=== PATIENT | female | born 1955 | race Caucasian/White ===

== ENCOUNTER → 2017-05-08 12:56 | Outpatient (CLI) | payer OTHER, SELFPAY ==
[2017-05-08 13:29] LABS: Hemoglobin A1c 6.1 % (4.2-6.3)
== END ==
PROVIDERS: Family Provider Internal Medicine; PCP Internal Medicine; Visit Provider Internal Medicine
DX: R73.02 Impaired glucose tolerance (oral) (principal)
CPT/HCPCS: 36415; 83036

== ENCOUNTER 2017-06-29 08:04 | Day surgery (SDC) | payer OTHER, SELFPAY ==
[2017-06-29 08:30] VITALS: BP 152/84; PULSE 74; RESP 16; TEMP 36.2; O2SAT 98; BMI 41.5
--- NOTE | 2017-06-29 09:28 | PCM.HP.STD ---
Problem List (1) Screening for intestinal cancer Status: Acute History of Present Illness Date of Admission: 06/29/17 The patient is a 62 year old F who presents for screening colonoscopy. Her previous examination was 10 years prior. She denies bright red blood per rectum or melena. No abdominal pain. No change of bowel habits. No unexpected weight loss. No history of DVT. She is otherwise enjoying good health. There is no family history of colon cancer or colon polyps. Past Medical History Allergies methylprednisolone sodium succinate [From Solu-Medrol] Adverse Reaction (Verified 06/26/17 15:18) Other tachycardic with shortness of breath Home Medications: Ambulatory Orders Medication Instructions Recorded Calcium Carb/Vitamin D 1 tab PO DAILY@0800 07/01/13 [Caltrate-600 With Vit D Tab] Losartan/Hydrochlorothiazide 1 tab PO DAILY 07/01/13 [Hyzaar 100-25 Tablet] Rosuvastatin Calcium [Crestor] 5 mg PO QHS 07/01/13 buPROPion XL [Wellbutrin Xl] 150 mg PO DAILY 07/01/13 Cetirizine HCl [Zyrtec] 10 mg PO DAILY 11/27/14 Esomeprazole Mag Trihydrate 40 mg PO DAILY 11/27/14 [Nexium] aspirin 81 mg tablet,delayed 81 mg PO QDAY 03/04/17 release multivitamin,ri-vvlp-ramuiglt 1 tab PO QDAY 03/04/17 tablet Smoking Status: Never smoker Review of Systems Constitutional: Denies: Weight Change Eyes: Denies: Blurred vision, Vision Change HEENT: Denies: Ear Pain, Eye Pain Cardiovascular: Denies: Chest Pain, Claudication Respiratory: Denies: Cough, Shortness of Breath Gastrointestinal: Denies: Hematemesis, Hematochezia Genitourinary: Denies: Dysuria, Hematuria Musculoskeletal: Denies: Leg Pain Skin: Denies: Jaundice Neurological: Denies: Confusion Psychiatric: Denies: Depression Endocrine: Denies: Change in Body Habitus Hematologic/ Lymphatic: Denies: Easy Bleeding VTE Information - Inpt Only VTE Present on Admission: No Patient Problems: Active and Suspected Problems (Last Updated 03/04/17 @ 12:27 by Meghan Cerrato) Screening for intestinal cancer (Acute) - Physical Exam General: Alert, Oriented x3, Cooperative, No apparent distress HEENT: Atraumatic Oral: Moist Mucosa Neck: Supple Lungs: Clear to auscultation Cardiovascular: Regular rate, Regular Rhythm Abdomen: Bowel Sounds Present, Soft, Non Tender, Non-Distended, No Hepato-splenomegaly Extremities: No clubbing Skin: No rashes Musculoskeletal: No Tenderness to Palpation of Joints or Extremities Neurological: Cranial nerves II-XII grossly intact Psych/Mental Status: Normal Affect Vital Signs Temp Pulse Resp BP Pulse Ox 97.2 F L 74 16 152/84 H 98 06/29/17 08:30 06/29/17 08:30 06/29/17 08:30 06/29/17 08:30 06/29/17 08:30 Oxygen Delivery Method Room Air Weight: 227 lb 4.745 oz Body Mass Index (BMI) 41.5 Assessment/Plan Active and Suspected Problems (Last Updated 03/04/17 @ 12:27 by Meghan Cerrato) Screening for intestinal cancer (Acute) I am recommending the patient a screening colonoscopy. She is aware of the technique, benefits, risks, alternatives. She has had an opportunity to ask and have questions answered.. We will proceed with IV sedation. Stan Vasquez M.D., F.A.C.S.
--- NOTE | 2017-06-29 09:31 | HP.PCM_ITS ---
Problem List (1) Screening for intestinal cancer Status: Acute History of Present Illness Date of Admission: 06/29/17 The patient is a 62 year old F who presents for screening colonoscopy. Her previous examination was 10 years prior. She denies bright red blood per rectum or melena. No abdominal pain. No change of bowel habits. No unexpected weight loss. No history of DVT. She is otherwise enjoying good health. There is no family history of colon cancer or colon polyps. Past Medical History Allergies methylprednisolone sodium succinate [From Solu-Medrol] Adverse Reaction ( Verified 06/26/17 15:18) Other tachycardic with shortness of breath Home Medications: Ambulatory Orders Medication Instructions Recorded Calcium Carb/Vitamin D 1 tab PO DAILY@0800 07/01/13 [Caltrate-600 With Vit D Tab] Losartan/Hydrochlorothiazide 1 tab PO DAILY 07/01/13 [Hyzaar 100-25 Tablet] Rosuvastatin Calcium [Crestor] 5 mg PO QHS 07/01/13 buPROPion XL [Wellbutrin Xl] 150 mg PO DAILY 07/01/13 Cetirizine HCl [Zyrtec] 10 mg PO DAILY 11/27/14 Esomeprazole Mag Trihydrate 40 mg PO DAILY 11/27/14 [Nexium] aspirin 81 mg tablet,delayed 81 mg PO QDAY 03/04/17 release multivitamin,sc-ncve-hiujvdlk 1 tab PO QDAY 03/04/17 tablet Smoking Status: Never smoker Review of Systems Constitutional: Denies: Weight Change Eyes: Denies: Blurred vision, Vision Change HEENT: Denies: Ear Pain, Eye Pain Cardiovascular: Denies: Chest Pain, Claudication Respiratory: Denies: Cough, Shortness of Breath Gastrointestinal: Denies: Hematemesis, Hematochezia Genitourinary: Denies: Dysuria, Hematuria Musculoskeletal: Denies: Leg Pain Skin: Denies: Jaundice Neurological: Denies: Confusion Psychiatric: Denies: Depression Endocrine: Denies: Change in Body Habitus Hematologic/ Lymphatic: Denies: Easy Bleeding VTE Information - Inpt Only VTE Present on Admission: No Patient Problems: Active and Suspected Problems (Last Updated 03/04/17 @ 12:27 by Meghan Cerrato) Screening for intestinal cancer (Acute) - Physical Exam General: Alert, Oriented x3, Cooperative, No apparent distress HEENT: Atraumatic Oral: Moist Mucosa Neck: Supple Lungs: Clear to auscultation Cardiovascular: Regular rate, Regular Rhythm Abdomen: Bowel Sounds Present, Soft, Non Tender, Non-Distended, No Hepato- splenomegaly Extremities: No clubbing Skin: No rashes Musculoskeletal: No Tenderness to Palpation of Joints or Extremities Neurological: Cranial nerves II-XII grossly intact Psych/Mental Status: Normal Affect Vital Signs Temp Pulse Resp BP Pulse Ox 97.2 F L 74 16 152/84 H 98 06/29/17 08:30 06/29/17 08:30 06/29/17 08:30 06/29/17 08:30 06/29/17 08:30 Oxygen Delivery Method Room Air Weight: 227 lb 4.745 oz Body Mass Index (BMI) 41.5 Assessment/Plan Active and Suspected Problems (Last Updated 03/04/17 @ 12:27 by Meghan Cerrato) Screening for intestinal cancer (Acute) I am recommending the patient a screening colonoscopy. She is aware of the technique, benefits, risks, alternatives. She has had an opportunity to ask and have questions answered.. We will proceed with IV sedation. Stan Vasquez M.D., F.A.C.S.
--- NOTE | 2017-06-29 09:55 | PCM.OPRPT ---
Problem List (1) Screening for intestinal cancer Status: Acute Report of Operation Date of Procedure: 06/29/17 Pre-Operative Diagnosis: Screening for intestinal cancer Post-Operative Diagnosis: Normal colonoscopy Surgery/Procedure Performed:: Colonoscopy Description of Surgical Findings:: Timeout and informed consent was obtained. 62-year-old female was taken to the endoscopy suite. She was placed in left lateral decubitus position. Throughout the procedure she received a total of 100 mg Demerol and 3.5 mg of Versed is intravenous sedation. Digital rectal exam performed. Some mild hemorrhoidal findings. No mass lesions. Normal anal tone. Flexible colonoscope inserted the rectum and gradually and tediously advanced through the colon. The splenic flexure was rather tight. Was then able to close to slowly advance the scope through the transverse colon into the ascending colon. It was achieved. Bowel prep was good. The scope was carefully withdrawn from the cecum ascending colon transverse colon descending colon and sigmoid colon. No distinct abnormality noted. The colon was rather tortuous. Scope was withdrawn to the rectum retroflex anorectal verge inspected this too was not remarkable. Excess fluid and air was aspirated free the procedure was completed she tolerated it well. Impression Normal colonoscopy. Previous examination was approximately 10 years prior. Next screening examination recommended in 10 years. Cc: Dr. Riri Aviles Medications were given at 0933. Procedure started 0935. The cecum was reached at 0943.05. The procedure was completed at 0954.50 Stan Vasquez M.D., F.A.C.S. Type of Anesthesia:: IV Sedation
[2017-06-29 09:59] VITALS: BP 154/89; BP 159/97; PULSE 92; RESP 18; TEMP 36.6; O2SAT 93
[2017-06-29 10:00] VITALS: BP 154/89; BP 173/112; PULSE 88; RESP 91; O2SAT 92
[2017-06-29 10:11] VITALS: BP 154/89; BP 163/93; PULSE 86; RESP 18; O2SAT 94
[2017-06-29 10:16] VITALS: BP 154/89; BP 158/100; PULSE 87; RESP 18; TEMP 36.6; O2SAT 96
[2017-06-29 10:26] VITALS: BP 154/89
== END 2017-06-29 10:39 | disposition home or self-care (01) ==
LOC: EN 08:05 → AC 08:06
PROVIDERS: Family Provider Internal Medicine; PCP Internal Medicine; Visit Provider Surgery
PROC: 0DJD8ZZ Inspection of Lower Intestinal Tract, Via Natural or Artificial Opening Endoscopic (ICD-10-PCS; CPT 45378; principal; 2017-06-29 09:10)
DX: Z12.11 Encounter for screening for malignant neoplasm of colon (principal); Z79.82 Long term (current) use of aspirin; Z79.899 Other long term (current) drug therapy
CPT/HCPCS: 45378; 99152; 99153; J7120

== ENCOUNTER → 2017-07-04 11:17 | Outpatient (CLI) | payer OTHER, SELFPAY ==
--- NOTE | 2017-07-04 11:23 | BI_ITS ---
MAMMOGRAPHY - BILATERAL SCREENING REASON FOR EXAM: Female, 62 years old. Routine annual screening examination. PERTINENT HISTORY: Non-contributory. TECHNIQUE: Digital bilateral breast rd (3D mammographic acquisition) in the CC and MLO projections. 2-D mediolateral oblique (MLO) and craniocaudad (CC) views of both breasts were obtained. CAD: Full Field Digital Mammography with Computer Added Detection was performed. COMPARISON: Comparison is made with prior study dated February 16, 2014 and October 17, 2012. FINDINGS: Breast Composition: The breasts are almost entirely fatty. There are no dominant masses or suspicious calcifications. Stable well-defined 4.6 mm nodule in the upper lateral portion of the right breast. This most likely represents a small intramammary lymph node. No other significant abnormalities are identified. There has been no significant change since the prior study. BI/SCREENING MAMM (CAD), BILAT IMPRESSION: Stable bilateral screening mammogram. Yearly follow-up mammogram recommended. (A) ASSESSMENT CATEGORY: BIRADS Category 2: Benign. A letter regarding these results will be sent to the patient by the facility within 30 days. Approximately 10% of breast cancers are not detected by mammography. A normal mammogram should not delay biopsy of a clinically suspicious abnormality. [id number] Electronically Signed: Basim Sharma MD at 13:15 EDT Tel [phone], Service support ,
--- NOTE | 2017-07-04 11:24 | BD_ITS ---
STUDY: DUAL ENERGY X-RAY ABSORPTIOMETRY / DXA REASON FOR EXAM: Female, 62 years old. The patient is postmenopausal. Loss of height. TECHNIQUE: Bone Mineral Density (BMD) measurements of lumbar spine and bilateral hips were obtained. COMPARISON: Comparison is made with prior study dated March 12, 2008. FINDINGS: Lumbar Spine (L1-L4): g/cm2 (1.520) / T-score (2.8) / Z-score (4.0) Findings are suggestive of normal bone density with a low fracture risk. Left Femur Total: g/cm2 (1.173) / T-score (1.3) / Z-score (2.2) Left Femoral Neck: g/cm2 (0.998) / T-score (-0.3) / Z-score (1.0) Right Femur Total: g/cm2 (1.231) / T-score (1.8) / Z-score (2.7) Right Femoral Neck: g/cm2 (1.142) / T-score (0.8) / Z-score (2.0) The T-Scores on the most recent prior examination were: Lumbar Spine (L1-L4): There has been improvement of bone density since the previous examination. Left Femur Total: which represents a worsening of 10.9%. BD/Dexa Bone Density Study IMPRESSION: The patient is considered normal as outlined below according to World Nils Organization (WHO) criteria with a low fracture risk. There has been worsening of bone density since the previous examination. Reference Information: The T-score is the number of standard deviations above or below the standard which is normal for young adults at their peak bone mineral density. The World Health Organization (WHO) interprets the T-scores as follows: Above -1 Normal bone density Between -1 and -2.5 Osteopenia Equal to / or below -2.5 Osteoporosis As a practical clinical guideline, osteopenia may be graded as follows: Mild -1 through -1.5 Moderate -1.6 through -2.0 Severe -2.1 through -2.4 The Z-score is the number of standard deviations above or below age-matched controls. A Z-score of less than -1.5 would be considered abnormal. References: 1. NIH Osteoporosis and Related Bone Diseases http://www.osteo.org 2. International Society for Clinical Densitometry http://www.iscd.org 3. National Osteoporosis Foundation http://www.nof.org Electronically Signed: Basim Sharma MD at 13:05 EDT Tel [phone], Service support ,
== END ==
PROVIDERS: Family Provider Internal Medicine; PCP Internal Medicine; Visit Provider Internal Medicine
DX: Z12.31 Encounter for screening mammogram for malignant neoplasm of breast (principal); Z78.0 Asymptomatic menopausal state
CPT/HCPCS: 77063; 77067; 77080

== ENCOUNTER → 2017-10-02 07:20 | Outpatient (CLI) | payer OTHER, SELFPAY ==
[2017-10-02 07:51] LABS: Absolute Lymphocyte Count 1.72 X10^3/ul (0.83-4.51); Basophil# 0.07 X10^3/uL; Basophil% 0.7 % (0-1); Eosinophil# 0.23 X10^3/uL; Eosinophils% 2.4 % (0-5); Hematocrit 41.6 % (37-47); Hemoglobin 13.3 g/dl (12.0-15.0); Lymphocyte # 1.72 X10^3/ul (4.0); Mean Corpuscular Hgb 27.7 pg (27.0-32.0); Mean Corpuscular Volume 86.7 fL (81-99); Mean Platelet Vol. 8.8 fl (6.2-12.0); Monocyte# 0.55 X10^3/uL; Monocyte% 5.8 % (0-10); Neutrophil # 6.96 X10^3/uL (2.7-7.7); Neutrophil % 72.9 % (47-70); POSITIVE COUNT NO; POSITIVE DIFFERENTIAL NO; POSITIVE MORPHOLOGY NO; Platelet Count 259 K/mm3 (150-450); RBC Distribution Width CV 13.2 % (11.6-14.6); RBC Distribution Width SD 41.9 fl (35.1-43.9); White Blood Count 9.6 K/mm3 (4.4-11.0)
[2017-10-02 08:33] LABS: AST(SGOT) 12 U/L (15-37); Alanine Aminotransfer ALT/SGPT 25 U/L (13-56); Albumin, Serum 3.5 g/dL (3.2-5.0); Alkaline Phosphatase 80 U/L (45-117); Anion Gap 11 (5-15); BUN 13 mg/dL (7-18); BUN/Creat Ratio 18.7 RATIO (10-20); Calcium,Total 9.3 mg/dL (8.5-10.1); Chloride 103 mmol/L (98-107); Cholesterol 152 mg/dL (200); EST Glomerular Filtration Rate 91 mL/min (>60); Est Glom Filt Rate - Afr Amer 111 mL/min (>60); Globulin 3.5 g/dL (2.2-4.2); Glucose 116 mg/dL (74-106); High Density Lipoprotein 43 mg/dL; Potassium 4.3 mmol/L (3.5-5.1); Sodium Level 142 mmol/L (136-145); Thyroid Stim Hormone (TSH) 3.71 uIU/mL (0.358-3.74); Triglycerides 157 mg/dL; Very Low Density Lipoprotein 31 mg/dL (5-40)
[2017-10-02 08:34] LABS: Microalbumin,Random Urine 6.5 mg/L (NO RANGE EST.); Microalbumin:Creatinine Ratio 3.7 mg/g CRE (<30 mg/g CRE)
[2017-10-02 09:39] LABS: Hemoglobin A1c 5.8 % (4.2-6.3)
[2017-10-03 17:19] LABS: Lipoprotein A 164 nmol/L (<75)
== END ==
PROVIDERS: Family Provider Internal Medicine; PCP Internal Medicine; Visit Provider Internal Medicine
DX: R73.02 Impaired glucose tolerance (oral) (principal)
CPT/HCPCS: 36415; 80053; 80061; 82043; 82570; 83036; 83695; 84443; 85025

== ENCOUNTER → 2018-04-18 13:13 | Outpatient (CLI) | payer OTHER, SELFPAY ==
[2018-04-18 14:23] LABS: CRP 8.16 mg/L (0.0-3.0)
[2018-04-18 14:27] LABS: Erythrocyte Sedimentation Rate 9 mm/hr (0-30)
[2018-04-18 14:30] LABS: Absolute Lymphocyte Count 2.23 X10^3/ul (0.83-4.51); Basophil# 0.08 X10^3/uL; Basophil% 0.6 % (0-1); Eosinophil# 0.22 X10^3/uL; Eosinophils% 1.8 % (0-5); Hematocrit 44.3 % (37-47); Hemoglobin 14.5 g/dl (12.0-15.0); Lymphocyte # 2.23 X10^3/ul (4.0); Lymphocyte % 17.9 % (19-41); Mean Corp Hgb Conc 32.7 g/gl (32-36); Mean Corpuscular Hgb 28.3 pg (27.0-32.0); Mean Corpuscular Volume 86.4 fL (81-99); Mean Platelet Vol. 9.4 fl (6.2-12.0); Monocyte# 0.91 X10^3/uL; Monocyte% 7.3 % (0-10); Neutrophil # 8.96 X10^3/uL (2.7-7.7); Neutrophil % 72.1 % (47-70); Platelet Count 366 K/mm3 (150-450); RBC Distribution Width SD 39.9 fl (35.1-43.9); Red Blood Count 5.13 M/mm3 (4.2-5.4); White Blood Count 12.4 K/mm3 (4.4-11.0)
[2018-04-18 14:31] LABS: POSITIVE COUNT NO; POSITIVE DIFFERENTIAL NO; POSITIVE MORPHOLOGY NO
[2018-04-19 08:29] LABS: Cancer Antigen 125 17.4 U/mL (0.0-38.1)
== END ==
PROVIDERS: Family Provider Internal Medicine; PCP Internal Medicine; Referring Provider Internal Medicine; Visit Provider Internal Medicine
DX: R10.32 Left lower quadrant pain (principal); Z85.43 Personal history of malignant neoplasm of ovary
CPT/HCPCS: 36415; 85025; 85652; 86140; 86304

== ENCOUNTER → 2018-04-22 08:10 | Outpatient (CLI) | payer OTHER, SELFPAY ==
--- NOTE | 2018-04-22 08:12 | CT_ITS ---
STUDY: CT ABDOMEN AND PELVIS WITH CONTRAST REASON FOR EXAM: Female, 63 years old. Left lower quadrant pain x2 weeks RADIATION DOSAGE (If Supplied By Facility): CTDIvol = ( 16.82 ) mGy, DLP = ( 1279.41 ) mGycm TECHNIQUE: Transaxial images were obtained from the dome of the diaphragm to the symphysis pubis without oral contrast. Isovue 300 100 IV/Oral was administered. Sagittal and coronal images were reconstructed. Individualized dose optimization techniques were used for this CT. COMPARISON: 2016 FINDINGS: There are chronic interstitial fibrotic changes of the lung bases. The visualized portions of the heart are within normal limits. Normal liver. Normal gallbladder and extrahepatic biliary system. Normal spleen. Normal pancreas. Normal bilateral adrenal glands. No obstructive uropathy, bilateral simple renal cysts. There is a small hiatal hernia. Normal small intestine. Retained stool noted in the colon. The appendix is visualized and appears normal. Appendix best seen on coronal recon image 52. Normal abdominal aorta. Normal inferior vena cava. Normal retroperitoneum. Normal urinary bladder. No suspicious cystic mass or free fluid in the pelvis. The uterus is likely surgically absent. Postsurgical changes noted in the ventral abdominal wall. There are diffuse degenerative changes of the visualized lumbar spine, and pelvis. CT/Abdomen/Pelvis WITH Contrast IMPRESSION: No suspicious solid organ abnormality, simple bilateral renal cysts No CT evidence of an acute inflammatory process, normal appendix visualized. No free peritoneal fluid, air, or suspicious adenopathy. No suspicious omental thickening Normal appendix visualized Degenerative bony changes Electronically Signed: Mike Simmons MD at 13:07 EDT , Service support ,
[2018-04-22 08:30] LABS: CREATININE FINGERSTICK 0.8 mg/dL (0.55-1.02)
== END ==
PROVIDERS: Family Provider Internal Medicine; PCP Internal Medicine; Referring Provider Internal Medicine; Visit Provider Internal Medicine
DX: R10.32 Left lower quadrant pain (principal)
CPT/HCPCS: 74177; Q9967

== ENCOUNTER → 2018-10-23 08:08 | Outpatient (CLI) | payer OTHER, SELFPAY ==
[2018-10-23 08:39] LABS: Absolute Lymphocyte Count 1.51 X10^3/uL (0.83-4.51); Absolute Neutrophil Count 6.8 X10^3/uL (2.0-7.7); Basophil# 0.09 X10^3/uL; Eosinophil# 0.18 X10^3/uL; Hematocrit 43.7 % (37-47); Hemoglobin 14.3 g/dL (12.0-15.0); Lymphocyte # 1.51 X10^3/ul (4.0); Lymphocyte % 16.4 % (19-41); Mean Corp Hgb Conc 32.7 g/dL (32-36); Mean Corpuscular Hgb 28.5 pg (27.0-32.0); Mean Corpuscular Volume 87.1 fL (81-99); Mean Platelet Vol. 8.8 fl (6.2-12.0); Monocyte# 0.54 X10^3/uL; Monocyte% 5.9 % (0-10); NRBC Flagged by Analyzer 0 % (0-5); Neutrophil # 6.81 X10^3/uL (2.7-7.7); Neutrophil % 74.2 % (47-70); Platelet Count 276 K/mm3 (150-450); RBC Distribution Width CV 12.5 % (11.6-14.6); RBC Distribution Width SD 39.6 fl (35.1-43.9); Red Blood Count 5.02 M/mm3 (4.2-5.4); White Blood Count 9.2 K/mm3 (4.4-11.0)
[2018-10-23 09:06] LABS: Hemoglobin A1c 6.5 % (4.2-6.3)
[2018-10-23 09:08] LABS: Microalbumin,Random Urine 7.7 mg/L (NO RANGE EST.); Microalbumin:Creatinine Ratio 5.6 mg/g CRE (<30 mg/g CRE)
[2018-10-23 09:24] LABS: AST(SGOT) 16 U/L (15-37); Alanine Aminotransfer ALT/SGPT 25 U/L (13-56); Albumin, Serum 3.7 g/dL (3.2-5.0); Alkaline Phosphatase 84 U/L (45-117); Anion Gap 4 (5-15); BUN 11 mg/dL (7-18); BUN/Creat Ratio 13.6 RATIO (10-20); Calcium,Total 9.6 mg/dL (8.5-10.1); Chloride 103 mmol/L (98-107); Creatinine, Serum 0.81 mg/dL (0.55-1.02); EST Glomerular Filtration Rate 77 mL/min (>60); Est Glom Filt Rate - Afr Amer 93 mL/min (>60); Globulin 3.6 g/dL (2.2-4.2); Glucose 118 mg/dL (74-106); Protein, Total 7.3 g/dL (6.4-8.2); Sodium Level 137 mmol/L (136-145); Thyroid Stim Hormone (TSH) 4.69 uIU/mL (0.358-3.74)
[2018-10-24 16:07] LABS: CHOLESTEROL TOTAL 178 mg/dL (100-199); HDL-C 40 mg/dL (>39); HDL-P TOTAL 35.2 umol/L (>=30.5); SMALL LDL-P 808 nmol/L (<=527); TRIGLYCERIDES 220 mg/dL (0-149)
[2018-10-24 17:31] LABS: INSULIN RESISTANCE SCORE 85 (<=45); LDL-C 94 mg/dL (0-99); LDL-P 1175 nmol/L (<1000)
== END ==
PROVIDERS: Family Provider Internal Medicine; PCP Internal Medicine; Referring Provider Internal Medicine; Visit Provider Internal Medicine
DX: E78.49 Other hyperlipidemia (principal); R73.02 Impaired glucose tolerance (oral)
CPT/HCPCS: 36415; 80053; 80061; 82043; 82570; 83036; 83704; 84443; 85025

== ENCOUNTER → 2019-01-24 08:17 | Outpatient (CLI) | payer OTHER, SELFPAY ==
[2019-01-24 07:51] VITALS: BMI 41.5
[2019-01-24 08:28] LABS: Absolute Neutrophil Count 6.9 X10^3/uL (2.0-7.7); Basophil# 0.09 X10^3/uL; Basophil% 0.9 % (0-1); Eosinophil# 0.19 X10^3/uL; Eosinophils% 1.9 % (0-5); Hematocrit 42.3 % (37-47); Hemoglobin 14.3 g/dL (12.0-15.0); Lymphocyte % 19.2 % (19-41); Mean Corp Hgb Conc 33.8 g/dL (32-36); Mean Corpuscular Hgb 28.8 pg (27.0-32.0); Mean Corpuscular Volume 85.1 fL (81-99); Mean Platelet Vol. 8.7 fl (6.2-12.0); Monocyte# 0.71 X10^3/uL; Monocyte% 7.2 % (0-10); NRBC Flagged by Analyzer 0 % (0-5); Neutrophil # 6.94 X10^3/uL (2.7-7.7); Neutrophil % 70.3 % (47-70); Platelet Count 267 K/mm3 (150-450); RBC Distribution Width CV 12.5 % (11.6-14.6); RBC Distribution Width SD 38.4 fl (35.1-43.9); Red Blood Count 4.97 M/mm3 (4.2-5.4); White Blood Count 9.9 K/mm3 (4.4-11.0)
[2019-01-24 08:44] LABS: ALB/GLOB Ratio 1.3 RATIO (0.9-2.4); AST(SGOT) 17 U/L (15-37); Alanine Aminotransfer ALT/SGPT 30 U/L (13-56); Albumin, Serum 4.1 g/dL (3.2-5.0); Alkaline Phosphatase 77 U/L (45-117); Anion Gap 6 (5-15); BUN 8 mg/dL (7-18); BUN/Creat Ratio 10.7 RATIO (10-20); Calcium,Total 9.9 mg/dL (8.5-10.1); Chloride 107 mmol/L (98-107); Creatinine, Serum 0.75 mg/dL (0.55-1.02); EST Glomerular Filtration Rate 84 mL/min (>60); Est Glom Filt Rate - Afr Amer 101 mL/min (>60); Globulin 3.2 g/dL (2.2-4.2); Glucose 106 mg/dL (74-106); Potassium 3.6 mmol/L (3.5-5.1); Protein, Total 7.3 g/dL (6.4-8.2); Sodium Level 142 mmol/L (136-145)
--- NOTE | 2019-01-24 10:47 | CT_ITS ---
STUDY: CT ABDOMEN AND PELVIS WITH CONTRAST REASON FOR EXAM: Female, 63 years old. EPIGASTRIC AND RIGHT SIDED PAIN. TWO KNOWN HERNIAS. HISTORY OF OVARIAN CANCER WITH ZARI/BSO RADIATION DOSAGE (If Supplied By Facility): CTDIvol = ( 15.99 ) mGy, DLP = ( 954.21 ) mGycm TECHNIQUE: Transaxial images were obtained from the dome of the diaphragm to the symphysis pubis with oral contrast. 100ML ISOVUE 300 was administered. Sagittal and coronal images were reconstructed. Individualized dose optimization techniques were used for this CT. COMPARISON: None. FINDINGS: The visualized lung bases are unremarkable. The visualized portions of the heart are within normal limits. Normal liver. Normal gallbladder and extrahepatic biliary system. Normal spleen. Normal pancreas. Normal bilateral adrenal glands. There is a simple cyst of the posterior right kidney, stable. No hydronephrosis or solid renal masses. Normal visualized stomach. No dilated loops of small bowel. There are multiple colonic diverticula consistent with diverticulosis. There is non-visualization of the appendix. There is mild atherosclerotic calcification of the abdominal aorta, without a demonstrated aneurysm. Normal inferior vena cava. Normal retroperitoneum. Normal urinary bladder. There is atrophy of the uterus. There appear to be operative changes of the anterior abdominal wall with periumbilical hernia measuring 1.9 x 3.4 cm containing a small loop of bowel, new. No evidence of bowel obstruction. Normal osseous structures. CT/Abdomen/Pelvis WITH Contrast IMPRESSION: 1. Anterior periumbilical hernia containing small bowel (new). No evidence of bowel obstruction. 2. Stable simple right renal cyst. 3. Additional stable chronic changes, as above. Electronically Signed: Adrian Cano MD ([place]) at 12:03 EST , Service support ,
[2019-01-25 13:43] LABS: Cancer Antigen 125 17.7 U/mL (0.0-38.1)
== END ==
PROVIDERS: Family Provider Internal Medicine; PCP Internal Medicine; Visit Provider Surgery
DX: R19.00 Intra-abdominal and pelvic swelling, mass and lump, unspecified site (principal); R10.9 Unspecified abdominal pain; Z85.43 Personal history of malignant neoplasm of ovary
CPT/HCPCS: 36415; 74177; 80053; 85025; 86304; Q9967

== ENCOUNTER 2019-01-30 05:33 | Day surgery (SDC) | payer OTHER, SELFPAY ==
[2019-01-24 08:36] VITALS: BMI 41.5
--- NOTE | 2019-01-24 08:36 | HP_ITS ---
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 Is patient in pain?: No Allergies methylprednisolone sodium succinate [From Solu-Medrol] Adverse Reaction (Verified 01/24/19 07:52) Other Medications Calcium Carb/Vitamin D [Caltrate-600 With Vit D Tab] 1 tab PO DAILY@0800 07/01/13 [History Confirmed 01/24/19] Losartan/Hydrochlorothiazide [Hyzaar 100-25 Tablet] 1 tab PO DAILY 07/01/13 [History Confirmed 01/24/19] Rosuvastatin Calcium [Crestor] 5 mg PO QHS 07/01/13 [History Confirmed 01/24/19] buPROPion XL [Wellbutrin Xl] 150 mg PO DAILY 07/01/13 [History Confirmed 01/24/19] Cetirizine HCl [Zyrtec] 10 mg PO DAILY 11/27/14 [History Confirmed 01/24/19] Esomeprazole Mag Trihydrate [Nexium] 40 mg PO DAILY 11/27/14 [History Confirmed 01/24/19] multivitamin,ab-ygmw-cenuicup 1 tab PO QDAY 03/04/17 [History Confirmed 01/24/19] levothyroxine 25 mcg tablet 25 mcg PO DAILY 01/24/19 [History Confirmed 01/24/19] sennosides 8.6 mg capsule 8.6 mg PO BID PRN 01/24/19 [History Confirmed 01/24/19] Is last menstrual period known: No Post menopausal: Yes Patient : No PFSH Medical History (Updated 01/24/19 @ 08:29 by Stan Vasqeuz MD) History of ovarian cancer (Acute) Ventral incisional hernia without obstruction or gangrene (Acute) Gastroesophageal reflux disease (Acute) History of Chou's esophagus (Acute) Arthritis (Acute) Barretts esophagus (Acute) GERD (gastroesophageal reflux disease) (Acute) Hay fever (Acute) Knee pain (Acute) Ovarian cancer (Acute) hypertension (Acute) Surgical History (Updated 01/24/19 @ 07:50 by Edel Trotter) Bilateral carpal tunnel syndrome (Acute) History of carpal tunnel release of both wrists (Acute) History of delivery (Acute) S/P ZARI-BSO (Acute) knee replacement (Acute) knee scope (Acute) Family History (Updated 01/24/19 @ 07:51 by Edel Trotter) Father Diabetes Mother Hypertension Heart disease Cancer lung Grandmother CVA (cerebral vascular accident) Social History (Updated 01/24/19 @ 08:36 by Stan Vasquez MD) Smoking Status: Never smoker alcohol intake: never HPI HPI HPI: FRANCES PARHAM, is a 63 F who presents to the office today for HPI HPI Surgical H&P: Yes HPI: FRANCES PARHAM, is a 63 F who presents to the office today for surgical consultation regarding a variety of symptoms. She has a previous history of Chou's esophagus. She has chronic gastroesophageal reflux disease. She is on chronic Nexium therapy 40 mg daily. In the past her symptoms were so severe she had to be on Nexium twice daily. Over the past 2 weeks her symptoms have escalated. Starting in April the patient had problems with intermittent sharp right lower quadrant pain. On April 22, 2018 at the [facility] she had a CT scan performed. This was interpreted as normal. On my review however ideally I demonstrate multiple ventral incisional hernial defects. There is one located superior to the umbilicus. There is another one periumbilical. There is a complex area with thickening in the right lower quadrant that involves the abdominal wall. Bowel is noted to be beneath. The patient's previously had 2 C-sections 1 via a Pfannenstiel incision 1 via vertical incision. She is also had a total abdominal hysterectomy with removal of a abdominal mass and hysterectomy. She is not sure whether she had an omentectomy however review of her CT scans suggest that bowel is directly beneath her abdominal wall suggesting absence of the omentum. Her most recent colonoscopy was June 29, 2017 performed myself and was normal The patient states that over the past week she has had a 3 pound weight gain. She states that her ovarian cancer was stage Ia. Her oncologist special education coordinator is Dr. Michael Faith. The patient routinely follows with her primary care physician The patient is referred by her primary care physician Dr. Riri Aviles and a written copy of my surgical consult recommendations will be returned to her Addendum I now have available copies of a upper endoscopy that I performed for her May 11, 2015. That was performed because of a previous history of Chou's. At the time of that endoscopy she had some mild antral gastritis. In the distal esophagus there was some chronic inflammation consistent with reflux. On biopsies at that time there was no evidence of Chou's. Her H. pylori at that time was negative. ROS General General: Yes weight change; no appetite, fatigue, colon cancer, breast cancer or weakness HEENT HEENT: No difficulty swallowing, eye injury, eye surgery, swollen glands or hoarseness Endo Endocrine: Yes thyroid disease; no diabetes mellitus, thyroid cancer, Hair loss, heat intolerance or cold intolerance Cardio Cardiovascular: Yes high blood pressure; no murmur, pacemaker, heart disease, atrial fibrillation, heart attack, heart stent, palpitations, shortness of breat with exertion or chest pain Resp Respiratory: No shortness of breath, No sleep apnea, No cough, No COPD, No asthma, No emphysema, No wheezing Gastro Gastrointestinal: Yes abdominal pain, Yes nausea or vomiting, No diarrhea, Yes constipation, No blood in stool, Yes acid reflux, Yes hemorrhoids, No ulcers, No gallbladder problem, No black,tarry stools Caden Hematologic: No blood thinners, No blood disorders, No bleeding, No anemia, No blood clots Neuro Neurologic: No weakness Exam Const General: cooperative, healthy appearing, comfortable, no acute distress Nutritional Appearance: obese Orientation: alert, awake [facility] Head: normal to inspection Neck Neck: normal visual inspection Chest Chest palpation & inspection: normal inspection of the chest Resp Effort & Inspection: normal respiratory effort Auscultation: clear to auscultation bilaterally Cardio Rate: regular rate Rhythm: regular rhythm Heart Sounds: no murmurs GI Palpation: soft Other: Normal bowel sounds, diffuse fullness in the epigastrium without a fascial defect palpable Mild tenderness to palpation right lower quadrant diffuse fullness in the lower infraumbilical area at the site of her previous incision,distinct fascial edges not palpable. Overweight with overhanging pannus Musc Cervical Spine: normal cervical lordosis Neuro Cognition: normal cognition Extrem General: no calf tenderness bilaterally Psych Affect: normal affect Assessment & Plan Problems 1. History of Chou's esophagus Z87.19 2. Gastroesophageal reflux disease with esophagitis K21.0 3. Ventral incisional hernia without obstruction or gangrene K43.2 4. History of ovarian cancer Z85.43 Plan The patient has recent escalation of her gastroesophageal reflux disease symptoms. I recommend to her a esophagogastroduodenoscopy for inspection of her known history of Chou's as well as evaluation of her increased acute symptoms. I recommend that she increase her Nexium currently to 40 mg twice daily. The patient has a sense that she has pressure in her abdomen pushing up and she has complaints of the weight gain. I recommended the patient that we obtain operative records from Dr. Michael Faith procedure looking to see in particular whether she has had an omentectomy. I have concerns that she did have this done which will clearly complicate a ventral incisional hernia procedure. I have concerns regarding her 3 pound weight gain over the past week and diffuse general complaint of abdominal fullness. Need to try to exclude the potential for recurrent ovarian cancer. I recommend that we obtain a fully contrasted abdominal pelvic CT scan. I also recommend that she be seen by Dr. Michael Faith before we consider proceeding with ventral incisional herniorrhaphies I have discussed with her that there are multiple hernias present. They extend from superior to the umbilicus down to the infraumbilical suprapubic area. In particular the infraumbilical area appears to have significant reactive changes of the fascia in the right lower quadrant at the site of patient discomfort. There is significant potential for dense adherence of bowel in this location. Therefore an approach to this area likely would be initiated through an open procedure and I might convert to a hybrid procedure with laparoscopic visualization if indicated. The patient is aware clearly of the increased risk for enterotomy and if that were to occur then the mesh repair herniorrhaphy portion of the procedure would be aborted. It might have to then be pursued in a staged technique. We will obtain a complete metabolic profile and a CBC and a Ca1 25. We will pursue the CT and gynecologic oncology consultation. We will pursue the upper endoscopy. Surgery on her ventral incisional hernia is pending updated information. I appreciate the opportunity of assisting with her surgical care Cc: Dr. Riri Aviles and Dr. Michael Vasquez M.D., F.A.C.S. Orders Orders: EGD Today Abdomen/Pelvis WITH Contrast Today R10.9, R19.00, Z85.43 Cancer Antigen 125 Today R19.00, Z85.43 CBC W/Diff, Automated Today R10.9 Comprehensive Metabolic Profil Today R10.9 Coding Level of Care Code 06035 Diagnoses History of Chou's esophagus Z87.19 Gastroesophageal reflux disease with esophagitis K21.0 ??Esophagitis presence: with esophagitis Ventral incisional hernia without obstruction or gangrene K43.2 History of ovarian cancer Z85.43 01/24/19 0836 <Electronically signed by Stan tellez MD> Date _ Stan Vasquez MD CT scan of the abdomen pelvis demonstrates a previous ventral incisional hernia that I recognized on review but had not been commented upon by radiology review. Now that incisional hernia has a loop of small bowel present within it. It does not appear to be obstructing. We are still awaiting copies of operative reports from her previous hysterectomy. Her gynecologic oncologic review is still pending as well. We will proceed with the upper endoscopy because of reflux disease and then anticipate future definitive ventral incisional hernia repairs as there are multiple hernias. Stan Vasquez M.D., F.A.C.S.
[2019-01-30] VITALS (18 sets, daily range): BP systolic 142–178; BP diastolic 75–111; PULSE 16–89; RESP 14–18; TEMP 36.3–36.7; O2SAT 88–100; BMI 41.5
[2019-01-30] MEDS: Lactated Ringers 1,000 ML 100 ML IV (06:00)
--- NOTE | 2019-01-30 06:30 | IMM_PTH ---
PATIENT: FRANCES PARHAM LOC: EN U#:[id number] AGE/SX: 63/F ROOM: RE01/30/[address]: Dr. Stan Vasquez MD : 1955 BED: DIS: 01/30/2019 SPEC #: [id number] RECD: 01/30/19 14:08 STATUS: ROSIE REQ #: [id number] JANESSA: 01/30/19 06:[address]: Stan Vasquez DEPT: IMMUNOHISTOCHEMISTRY RECD BY: Sparkle Chester ENTERED: 01/30/19 14:09 SP TYPE: IMMUNO OTHR DR: Dr. Riri Aviles DO Tissues: A - Stomach, NOS Procedures: H Pylori (initial) PHYSICIAN & INSTITUTION [place] [address] SPECIMEN INFORMATION: Tissue Source: A - Antrum biopsy Clinical Info: History Chou's, GERD Specimen Number: [id number] CPT code: 12987 METHODOLOGY: Deparaffinized sections of prefer/formalin-fixed tissue or PAP/DQ stained slides are incubated with monoclonal/polyclonal antibodies/oligonucleotide probes. Localization is made via biotin free immunoperoxidase method. Appropriate controls are performed and reacted as expected. Results on target cell population are indicated in the following table: RESULTS: ANTIBODY / CLONE RESULT Block A H Pylori (polyclonal) negative These tests were developed and their performance characteristics determined by [facility]. They may not have been cleared or approved by the U.S. Food and Drug Administration. The FDA has determined that such clearance or approval is not necessary. The above immunohistochemical/dualISH markers are ordered and reviewed by the Pathologist. INTERPRETATION: A. Antrum biopsy: Negative for Helicobacter pylori organisms. AM:swapna 01/31/19
--- NOTE | 2019-01-30 06:30 | EGD_PTH ---
PATIENT: FRANCES PARHAM LOC: EN U#:[id number] AGE/SX: 63/F ROOM: RE01/30/[address]: Dr. Stan Vasquez MD : 1955 BED: DIS: 01/30/2019 SPEC #: [id number] RECD: 01/30/19 08:03 STATUS: ROSIE KRISTOPHER #: [id number] JANESSA: 01/30/19 06:[address]: Stan Vasquez DEPT: SURGICAL PATHOLOGY RECD BY: Nehemiah Mattson ENTERED: 01/30/19 13:17 SP TYPE: EGD BIOPSY OT DR: Dr. Riri Aviles DO Tissues: A - Gastric mucous membrane B - Stomach, NOS C - Esophageal mucous membrane D - Esophageal mucous membrane Procedures: Special Stain Group II Surgery Specimen Level IV Alcian Blue/PAS (control) HEADER OPERATION: EGD (MOD) PRE-OP DIAGNOSIS: History Chou's, GERD TISSUE SUBMITTED: A - Antrum biopsy for histo and H. pylori, B - Greater curvature polyp biopsy, C - Distal esophagus biopsy, D - Mid esophagus biopsy MICROSCOPIC DIAGNOSIS A. Gastric antrum, biopsy: Mild chronic gastritis. See comment. B. Gastric polyp, greater curvature, biopsy: Fundic gland polyp. C. Distal esophagus, biopsy: Gastroesophageal junctional mucosa with mild chronic inflammation. No evidence of intestinal metaplasia. See comment. D. Mid esophagus, biopsy: Fragments of benign squamous mucosa. No evidence of inflammation. AM:swapna 01/31/19 COMMENT A. The results of immunohistochemistry for Helicobacter pylori will be reported separately ([id number]). C. Alcian blue/PAS stain with matched control supports the above diagnosis. MICROSCOPIC DESCRIPTION Slides are reviewed. GROSS DESCRIPTION A - Received in fixative is one container labeled with the patient's name and designated antrum biopsy. The specimen consists of one irregular fragment of light prado soft tissue that measures 0.6 x 0.3 x 0.1 cm. The specimen is totally submitted in one cassette. B - Received in fixative is one container labeled with the patient's name and designated greater curvature biopsy. The specimen consists of one irregular fragment of light prado soft tissue that measures 0.3 x 0.3 x 0.1 cm. The specimen is totally submitted in one cassette. C - Received in fixative is one container labeled with the patient's name and designated distal esophagus biopsy. The specimen consists of multiple irregular fragments of light prado soft tissue that in aggregate measure 1 x 0.5 x 0.1 cm. The specimen is totally submitted in one cassette. D - Received in fixative is one container labeled with the patient's name and designated mid esophagus biopsy. The specimen consists of one irregular fragment of light prado soft tissue that measures 0.5 x 0.5 x <0.1 cm. The specimen is totally submitted in one cassette. / AM:swapna 01/30/19 TC:3 CPT: 91347 x4, 94544
--- NOTE | 2019-01-30 06:49 | OP.EGD_ITS ---
Patient Name: Lois Up Procedure Date: 01/30/2019 6:08 AM Date of : 1955 Age: 63 Procedure: Upper GI endoscopy Indications: Suspected gastro-esophageal reflux disease Providers: Stan Vasquez MD Referring MD: Riri Aviles Medicines: Midazolam 3.5 mg IV, Meperidine 100 mg IV Complications: No immediate complications. Procedure: Pre-Anesthesia Assessment: - Prior to the procedure, a History and Physical was performed, and patient medications and allergies were reviewed. The patient's tolerance of previous anesthesia was also reviewed. The risks and benefits of the procedure and the sedation options and risks were discussed with the patient. All questions were answered, and informed consent was obtained. Prior Anticoagulants: The patient has taken no previous anticoagulant or antiplatelet agents. ASA Grade Assessment: II - A patient with mild systemic disease. After reviewing the risks and benefits, the patient was deemed in satisfactory condition to undergo the procedure. After obtaining informed consent, the endoscope was passed under direct vision. Throughout the procedure, the patient's blood pressure, pulse, and oxygen saturations were monitored continuously. The gastroscope was introduced through the mouth, and advanced to the second part of duodenum. The upper GI endoscopy was accomplished without difficulty. The patient tolerated the procedure well. Moderate Sedation: Moderate (conscious) sedation was personally administered by the endoscopist. The following parameters were monitored: oxygen saturation, heart rate, blood pressure, and response to care. Total physician intraservice time was 15 minutes. Scope In: 6:32:42 AM Scope Out: 6:40:48 AM Total Procedure Duration Time 0 hours 8 minutes 6 seconds Findings: Esophagitis with no bleeding was found 40 cm from the incisors. Biopsies were taken with a cold forceps for histology. A small hiatal hernia was present. Diffuse moderately erythematous mucosa without bleeding was found in the gastric antrum. Biopsies were taken with a cold forceps for histology. A few sessile polyps with no bleeding and no stigmata of recent bleeding were found on the greater curvature of the stomach. The polyp was removed with a cold biopsy forceps. Resection and retrieval were complete. The examined duodenum was normal. Impression: - Reflux esophagitis. Biopsied. Mid esophageal biopsies obtained as well--mucosa appeared normal - Small hiatal hernia. - Erythematous mucosa in the antrum. Biopsied. - A few gastric polyps. Resected and retrieved. - Normal examined duodenum. Recommendation: - Return to my office in 1 week. - Resume previous diet. - Continue present medications. Pt is already on nexium 40mg daily and antacid. Will add carafate. Procedure Code(s): --- Professional --- 23301, Esophagogastroduodenoscopy, flexible, transoral; with biopsy, single or multiple 59377, 59, Moderate sedation services provided by the same physician or other qualified health career guidance counselor performing the diagnostic or therapeutic service that the sedation supports, requiring the presence of an independent trained observer to assist in the monitoring of the patient's level of consciousness and physiological status; initial 15 minutes of intraservice time, patient age 5 years or older Diagnosis Code(s): --- Professional --- K21.0, Gastro-esophageal reflux disease with esophagitis K44.9, Diaphragmatic hernia without obstruction or gangrene K31.89, Other diseases of stomach and duodenum K31.7, Polyp of stomach and duodenum CPT copyright 2017 [employer]. All rights reserved. The codes documented in this report are preliminary and upon roofer metal review may be revised to meet current compliance requirements. Stan Vasquez MD 01/30/2019 6:49:34 AM This report has been signed electronically. Number of Addenda: 0 Note Initiated On: 01/30/2019 6:08 AM
[2019-01-30] MEDS: Ondansetron 4 MG/2 ML Vial IV (07:47)
== END 2019-01-30 08:26 | disposition home or self-care (01) ==
LOC: EN 05:34 → AC 05:35
PROVIDERS: Family Provider Internal Medicine; PCP Internal Medicine; Referring Provider Internal Medicine; Visit Provider Surgery
PROC: (CPT 43239; principal; 2019-01-30 06:25)
DX: K31.7 Polyp of stomach and duodenum (principal); K29.50 Unspecified chronic gastritis without bleeding; K21.0 Gastro-esophageal reflux disease with esophagitis; K44.9 Diaphragmatic hernia without obstruction or gangrene; K31.89 Other diseases of stomach and duodenum; K43.2 Incisional hernia without obstruction or gangrene; I10 Essential (primary) hypertension; E07.9 Disorder of thyroid, unspecified; M19.90 Unspecified osteoarthritis, unspecified site; E66.3 Overweight; Z79.899 Other long term (current) drug therapy; Z78.0 Asymptomatic menopausal state; Z85.43 Personal history of malignant neoplasm of ovary; Z90.710 Acquired absence of both cervix and uterus
CPT/HCPCS: 43239; 88305; 88313; 88342; 99152; 99153; J7120; J2310; J2405

== ENCOUNTER 2019-02-12 11:30 | Inpatient (IN) | payer OTHER, SELFPAY ==
--- NOTE | 2019-01-24 08:36 | HP_ITS ---
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 Is patient in pain?: No Allergies methylprednisolone sodium succinate [From Solu-Medrol] Adverse Reaction (Verified 01/24/19 07:52) Other Medications Calcium Carb/Vitamin D [Caltrate-600 With Vit D Tab] 1 tab PO DAILY@0800 07/01/13 [History Confirmed 01/24/19] Losartan/Hydrochlorothiazide [Hyzaar 100-25 Tablet] 1 tab PO DAILY 07/01/13 [History Confirmed 01/24/19] Rosuvastatin Calcium [Crestor] 5 mg PO QHS 07/01/13 [History Confirmed 01/24/19] buPROPion XL [Wellbutrin Xl] 150 mg PO DAILY 07/01/13 [History Confirmed 01/24/19] Cetirizine HCl [Zyrtec] 10 mg PO DAILY 11/27/14 [History Confirmed 01/24/19] Esomeprazole Mag Trihydrate [Nexium] 40 mg PO DAILY 11/27/14 [History Confirmed 01/24/19] multivitamin,kf-fufd-fehojiye 1 tab PO QDAY 03/04/17 [History Confirmed 01/24/19] levothyroxine 25 mcg tablet 25 mcg PO DAILY 01/24/19 [History Confirmed 01/24/19] sennosides 8.6 mg capsule 8.6 mg PO BID PRN 01/24/19 [History Confirmed 01/24/19] Is last menstrual period known: No Post menopausal: Yes Patient : No PFSH Medical History (Updated 01/24/19 @ 08:29 by Stan Vasquez MD) History of ovarian cancer (Acute) Ventral incisional hernia without obstruction or gangrene (Acute) Gastroesophageal reflux disease (Acute) History of Chou's esophagus (Acute) Arthritis (Acute) Barretts esophagus (Acute) GERD (gastroesophageal reflux disease) (Acute) Hay fever (Acute) Knee pain (Acute) Ovarian cancer (Acute) hypertension (Acute) Surgical History (Updated 01/24/19 @ 07:50 by Edel Trotter) Bilateral carpal tunnel syndrome (Acute) History of carpal tunnel release of both wrists (Acute) History of delivery (Acute) S/P ZARI-BSO (Acute) knee replacement (Acute) knee scope (Acute) Family History (Updated 01/24/19 @ 07:51 by Edel Trotter) Father Diabetes Mother Hypertension Heart disease Cancer lung Grandmother CVA (cerebral vascular accident) Social History (Updated 01/24/19 @ 08:36 by Stan Vasquez MD) Smoking Status: Never smoker alcohol intake: never HPI HPI HPI: FRANCES PARHAM, is a 63 F who presents to the office today for HPI HPI Surgical H&P: Yes HPI: FRANCES PARHAM, is a 63 F who presents to the office today for surgical consultation regarding a variety of symptoms. She has a previous history of Chou's esophagus. She has chronic gastroesophageal reflux disease. She is on chronic Nexium therapy 40 mg daily. In the past her symptoms were so severe she had to be on Nexium twice daily. Over the past 2 weeks her symptoms have escalated. Starting in April the patient had problems with intermittent sharp right lower quadrant pain. On April 22, 2018 at the [facility] she had a CT scan performed. This was interpreted as normal. On my review however ideally I demonstrate multiple ventral incisional hernial defects. There is one located superior to the umbilicus. There is another one periumbilical. There is a complex area with thickening in the right lower quadrant that involves the abdominal wall. Bowel is noted to be beneath. The patient's previously had 2 C-sections 1 via a Pfannenstiel incision 1 via vertical incision. She is also had a total abdominal hysterectomy with removal of a abdominal mass and hysterectomy. She is not sure whether she had an omentectomy however review of her CT scans suggest that bowel is directly beneath her abdominal wall suggesting absence of the omentum. Review with her oncologic reading recovery teacher concurs that an omentectomy was performed. Her most recent colonoscopy was June 29, 2017 performed myself and was normal The patient states that over the past week she has had a 3 pound weight gain. She states that her ovarian cancer was stage Ia. Her oncologist reading recovery teacher is Dr. Michael Faith. The patient routinely follows with her primary care physician The patient is referred by her primary care physician Dr. Riri Aviles and a written copy of my surgical consult recommendations will be returned to her Addendum I now have available copies of a upper endoscopy that I performed for her May 11, 2015. That was performed because of a previous history of Chou's. At the time of that endoscopy she had some mild antral gastritis. In the distal esophagus there was some chronic inflammation consistent with reflux. On biopsies at that time there was no evidence of Chou's. Her H. pylori at that time was negative. ROS General General: Yes weight change; no appetite, fatigue, colon cancer, breast cancer or weakness HEENT HEENT: No difficulty swallowing, eye injury, eye surgery, swollen glands or hoarseness Endo Endocrine: Yes thyroid disease; no diabetes mellitus, thyroid cancer, Hair loss, heat intolerance or cold intolerance Cardio Cardiovascular: Yes high blood pressure; no murmur, pacemaker, heart disease, atrial fibrillation, heart attack, heart stent, palpitations, shortness of breat with exertion or chest pain Resp Respiratory: No shortness of breath, No sleep apnea, No cough, No COPD, No asthma, No emphysema, No wheezing Gastro Gastrointestinal: Yes abdominal pain, Yes nausea or vomiting, No diarrhea, Yes constipation, No blood in stool, Yes acid reflux, Yes hemorrhoids, No ulcers, No gallbladder problem, No black,tarry stools Caden Hematologic: No blood thinners, No blood disorders, No bleeding, No anemia, No blood clots Neuro Neurologic: No weakness Exam Const General: cooperative, healthy appearing, comfortable, no acute distress Nutritional Appearance: obese Orientation: alert, awake [facility] Head: normal to inspection Neck Neck: normal visual inspection Chest Chest palpation & inspection: normal inspection of the chest Resp Effort & Inspection: normal respiratory effort Auscultation: clear to auscultation bilaterally Cardio Rate: regular rate Rhythm: regular rhythm Heart Sounds: no murmurs GI Palpation: soft Other: Normal bowel sounds, diffuse fullness in the epigastrium without a fascial defect palpable Mild tenderness to palpation right lower quadrant diffuse fullness in the lower infraumbilical area at the site of her previous incision,distinct fascial edges not palpable. Overweight with overhanging pannus Musc Cervical Spine: normal cervical lordosis Neuro Cognition: normal cognition Extrem General: no calf tenderness bilaterally Psych Affect: normal affect Assessment & Plan Problems 1. History of Chou's esophagus Z87.19 2. Gastroesophageal reflux disease with esophagitis K21.0 3. Ventral incisional hernia without obstruction or gangrene K43.2 4. History of ovarian cancer Z85.43 Plan The patient has recent escalation of her gastroesophageal reflux disease symptoms. I recommend to her a esophagogastroduodenoscopy for inspection of her known history of Chou's as well as evaluation of her increased acute symptoms. I recommend that she increase her Nexium currently to 40 mg twice daily. The patient has a sense that she has pressure in her abdomen pushing up and she has complaints of the weight gain. I recommended the patient that we obtain operative records from Dr. Michael Faith procedure looking to see in particular whether she has had an omentectomy. I have concerns that she did have this done which will clearly complicate a ventral incisional hernia procedure. I have concerns regarding her 3 pound weight gain over the past week and diffuse general complaint of abdominal fullness. Need to try to exclude the potential for recurrent ovarian cancer. I recommend that we obtain a fully contrasted abdominal pelvic CT scan. I also recommend that she be seen by Dr. Michael Faith before we consider proceeding with ventral incisional herniorrhaphies I have discussed with her that there are multiple hernias present. They extend from superior to the umbilicus down to the infraumbilical suprapubic area. In particular the infraumbilical area appears to have significant reactive changes of the fascia in the right lower quadrant at the site of patient discomfort. There is significant potential for dense adherence of bowel in this location. Therefore an approach to this area likely would be initiated through an open procedure and I might convert to a hybrid procedure with laparoscopic visualization if indicated. The patient is aware clearly of the increased risk for enterotomy and if that were to occur then the mesh repair herniorrhaphy portion of the procedure would be aborted. It might have to then be pursued in a staged technique. We will obtain a complete metabolic profile and a CBC and a CA-125. We will pursue the CT and gynecologic oncology consultation. We will pursue the upper endoscopy. Surgery on her ventral incisional hernia is pending updated information. I appreciate the opportunity of assisting with her surgical care Cc: Dr. Riri Aviles and Dr. Michael Vasquez M.D., F.A.C.S. Orders Orders: EGD Today Abdomen/Pelvis WITH Contrast Today R10.9, R19.00, Z85.43 Cancer Antigen 125 Today R19.00, Z85.43 CBC W/Diff, Automated Today R10.9 Comprehensive Metabolic Profil Today R10.9 Coding Level of Care Code 21693 Diagnoses History of Chou's esophagus Z87.19 Gastroesophageal reflux disease with esophagitis K21.0 ??Esophagitis presence: with esophagitis Ventral incisional hernia without obstruction or gangrene K43.2 History of ovarian cancer Z85.43 01/24/19 0836 <Electronically signed by Stan tellez MD> Date _ Stan Vasquez MD Esophagogastroduodenoscopy of January 30, 2019 demonstrated mild gastritis and gastric fundic polyps and minimal reflux esophagitis. H. pylori was negative. No findings at this time of Chou's esophagus. Her repeat CT scan demonstrated small bowel within ventral incisional hernia. The patient presents at this time to undergo surgical repair. It is anticipated to be a hybrid open and laparoscopic procedure. A tap nerve block will be performed as well. She has been cleared for surgery by Dr. Michael Faith. It was confirmed that a total omentectomy was performed. Dense bowel adhesions are anticipated. Stan Vasquez M.D., F.A.C.S.
[2019-01-30 05:52] VITALS: BMI 41.5
--- NOTE | 2019-02-11 08:23 | EKG12_ITS ---
Test Reason : PRE OP Blood Pressure : / mmHG Vent. Rate : 086 BPM Atrial Rate : 086 BPM P-R Int : 212 ms QRS Dur : 094 ms QT Int : 366 ms P-R-T Axes : 058 -46 061 degrees QTc Int : 437 ms Sinus rhythm with 1st degree A-V block Left anterior fascicular block Poor R wave progression Abnormal ECG Confirmed by JANICE BILLINGS, SAPPHIRE ([id number]), social media editor JERMAINE RÍOS ([id number]) on 02/12/2019 10:36:14 AM Referred By: Stan Vasquez Confirmed By:SAPPHIRE CAMACHO MD
[2019-02-11 08:32] LABS: Hematocrit 41.9 % (37-47); Hemoglobin 13.6 g/dL (12.0-15.0); Mean Corp Hgb Conc 32.5 g/dL (32-36); Mean Corpuscular Hgb 27.8 pg (27.0-32.0); Mean Corpuscular Volume 85.7 fL (81-99); Mean Platelet Vol. 8.6 fl (6.2-12.0); Platelet Count 292 K/mm3 (150-450); RBC Distribution Width CV 12.4 % (11.6-14.6); RBC Distribution Width SD 38.5 fl (35.1-43.9); Red Blood Count 4.89 M/mm3 (4.2-5.4); White Blood Count 11.5 K/mm3 (4.4-11.0)
[2019-02-11 09:01] LABS: Anion Gap 3 (5-15); BUN 7 mg/dL (7-18); BUN/Creat Ratio 8.5 RATIO (10-20); Calcium,Total 9.5 mg/dL (8.5-10.1); Chloride 104 mmol/L (98-107); Creatinine, Serum 0.82 mg/dL (0.55-1.02); EST Glomerular Filtration Rate 75 mL/min (>60); Est Glom Filt Rate - Afr Amer 91 mL/min (>60); Glucose 188 mg/dL (74-106); Potassium 3.5 mmol/L (3.5-5.1); Sodium Level 139 mmol/L (136-145); Thyroid Stim Hormone (TSH) 2.75 uIU/mL (0.358-3.74)
[2019-02-12] VITALS (16 sets, daily range): BP systolic 113–151; BP diastolic 57–80; PULSE 71–102; RESP 15–20; TEMP 36.2–37.3; O2SAT 93–99; BMI 40.9
--- NOTE | 2019-02-12 06:11 | DCINST_ITS ---
Discharge Diet: Light diet - advance as tolerated - if you have questions about your diet instructions, please talk to you doctor. Discharge Activity: May Not Drive - for 1 week or while taking narcotic pain medicine., May Shower May shower in (days): 0 Lifting Restrictions: 10 pounds Call your doctor if your incision/area has: Continuous Slow Oozing, Sudden Increased Bleeding, Increased Pain/ Swelling, Increased Redness, Foul Smelling Discharge Call your doctor if you observe: Fever of 101 or Higher Suture Line Care: Avoid Pulling/Pushing, Avoid Pinching/Bending Additional Dressing/Incision Instructions:: Change or remove dressing in 2 days. Leave steri-strips in place for 1 week. Allergies/Adverse Reactions: Allergies methylprednisolone sodium succinate [From Solu-Medrol] Adverse Reaction (Verified 02/12/19 06:12) Other tachycardic with shortness of breath Medications to take at Discharge Calcium Carb/Vitamin D [Caltrate-600 With Vit D Tab] 1 tab PO DAILY@0800 07/01/13 Losartan/Hydrochlorothiazide [Hyzaar 100-25 Tablet] 1 tab PO DAILY 07/01/13 Rosuvastatin Calcium [Crestor] 5 mg PO QHS 07/01/13 buPROPion XL [Wellbutrin Xl] 150 mg PO DAILY 07/01/13 Cetirizine HCl [Zyrtec] 10 mg PO DAILY 11/27/14 Esomeprazole Mag Trihydrate [Nexium] 40 mg PO BID 11/27/14 multivitamin,fe-kwes-uqwuybfa 1 tab PO QDAY 03/04/17 levothyroxine 25 mcg tablet 25 mcg PO DAILY 01/24/19 Sucralfate [Carafate] 1 gm PO 4X/DAY #120 tab 01/30/19 Senna [Senokot] 1 tab PO DAILY 02/07/19 Primary Care Physician: Riri Aviles DO [Primary Care Provider] - Test Results: Test results from this visit will be discussed in further detail at your follow- up appointment, if applicable. Please Follow Up With: Stan Vasquez MD - [phone] When: Call to make an appointment to be seen in about 7-10 days.
[2019-02-12] MEDS: Lactated Ringers 1,000 ML 30 ML IV (06:39)
[2019-02-12] MEDS: Lactated Ringers 1,000 ML 100 ML IV ×2 (09:31→22:25)
[2019-02-12] MEDS: Bupivacaine 0.25% 30 ML Vial (11:28)
[2019-02-12] MEDS: BUPIVACAINE LIPOSOME/PF 20 ML VIAL OPERA.SITE (11:29)
[2019-02-12] MEDS: 0.9% Normal Saline (Pres. free 10 ML Vial (11:30)
--- NOTE | 2019-02-12 11:37 | PCM.OPRPT ---
Problem List (1) Ventral incisional hernia without obstruction or gangrene Status: Acute Report of Operation Date of Procedure: 02/12/19 Pre-Operative Diagnosis: Complex multi-defect incarcerated ventral incisional hernias x3 Post-Operative Diagnosis: Complex multi-defect ventral incisional hernias with incarcerated small bowel and dense colonic and small bowel adhesions Surgery/Procedure Performed:: Hybrid laparoscopic and open lysis of adhesions with release of colonic and small bowel incisional incarceration and laparoscopic ventral incisional hernia repair with mesh. Laparoscopic bilateral tap block. Ventral light ST mesh. Reference #[id number]. Lot number [id number]. expiry date 07/02/2020 Description of Surgical Findings:: Timeout and informed consent was obtained. 63-year-old female was taken to the operating room underwent general trach intubation seizure. Ancef 3 g given intravenously preoperatively. The abdomen sterilely prepped draped. Ioban draping was used as well. I initially planned a infraumbilical midline incision sharp dissection encountered significant by the scar tissue so then I got into the abdomen in the left upper quadrant through a Visiport 5 mm technique. This demonstrated dense adhesions of sigmoid colon to the anterior abdominal wall involved with ventral incisional hernias and multiple loops of small bowel involved with them multiple ventral incisional hernial defects and densely plastered to the peritoneum. I added 2 more 5 Garcia ports in the left midabdomen 2 more 5 mm ports in the right midabdomen and for 2 hours performed combined laparoscopic and after approximately an hour and a half converted to a hand assist semi-open lysis of adhesions. The adhesions were extraordinarily dense with flattened out small bowel immediately plastered against the anterior abdominal wall. The patient had had a previous ovarian surgery with omentectomy creating in part the veracity of the problem. Tedious sharp dissection was required laparoscopically were needed hemostasis attained with hemo-lock clips and electrocautery then the adhesions were so fierce in the umbilical infraumbilical area I lengthened that incision and into a part open procedure did an open lysis then put a hand port into try to finish off the lyse adhesions more in the pelvic area. Then through the HandPort I did I ran the small bowel carefully inspecting for any enterotomies of which there were none. I carefully inspected the sigmoid colon that had been densely adherent and there were also no enterotomies. The bowel was placed back within the abdomen. The midline fascia was closed with a running #1 Prolene. I placed an Barnard catheter. I utilized a ventral light ST mesh 25 x 15 cm. Put 4 corner sutures of 2-0 Prolene placed that mesh within the abdomen through the son unfurled it used a grainy needle to parachute the mesh up to the abdominal. I then remove this on and finished that closure with the Prolene. I then secured the mesh with secure strap at peripheral intervals. Because of the patient's body habitus and mesh size 3 secure straps were required to get good approximation of the mesh and secured closure. I then thoroughly irrigated wetted the mesh with a liter of fluid and that fluid remained in the abdomen. What I could of the transverse colon pulled down overlying the small bowel so as to protect the small bowel as much as possible. Then I performed a bilateral tap block under laparoscopic control. I used 20 cc of Exparel diluted with 60 cc of 0.25% Marcaine diluted in 200 cc with saline. This was performed laparoscopically bilaterally. The abdomen is then allowed to deflate of the CO2. Skin edges were approximated up to 4 Monocryl subdermal stitches. Steri-Strips Telfa OpSite dressings applied. Sponge and instrument and needle counts reported surgical correct. Blood loss has been minimal. Specimens none. Drains none. Blood loss minimal. She tolerated the procedure well was taken the recovery room in satisfactory edition without apparent complication. Stan Vasquez M.D., F.A.C.S. Type of Anesthesia:: General Anesthesiologist: Gabby Alston
--- NOTE | 2019-02-12 23:13 | NURSING ---
Pt has walked 3 full laps in the morrow since 1900.
[2019-02-13 03:54] VITALS: BP 153/89; PULSE 102; RESP 18; TEMP 36.6; O2SAT 99
--- NOTE | 2019-02-13 06:00 | PN.SURG_ITS ---
Subjective: Patient is amazingly comfortable for the amount of surgery performed yesterday. She is ambulating well. Burping no flatus or stools. Pain is amazingly well controlled. - Physical Exam Vitals/I&O's: Vital Signs Temp Pulse Resp BP Pulse Ox 98 F 102 H 18 153/89 H 99 02/13/19 03:54 02/13/19 03:54 02/13/19 03:54 02/13/19 03:54 02/13/19 03:54 Oxygen Flow Rate (L/min) 2 Oxygen Delivery Method Room Air Weight: 223 lb 12.307 oz Body Mass Index (BMI) 40.9 Intake and Output for Last 24 Hours 02/11/19 02/12/19 02/13/19 23:59 23:59 23:59 Intake Total 2225.00 / 2225.00 Output Total 1300 / 1300 Balance 925.00 / 925.00 Lungs: Clear to auscultation Abdomen: Soft, Hypoactive Bowel Sounds, Distended Current Medications Acetaminophen (Tylenol) 650 mg PO Q6H PRN PRN PRN Reason: Pain Score 1-10/10 Hydrocodone Bitart/Acetaminophen ([place] 5mg-325mg) 1 - 2 tablet PO Q4H PRN PRN PRN Reason: Pain Score 1-10/10 Docusate Sodium (Colace) 100 mg PO DAILY [facility] Enoxaparin Sodium (Lovenox) 40 mg SC DAILY@0600 [facility] Lactated Ringer's () 1,000 mls @ 100 mls/hr IV .Q10H [facility] Last Admin: 02/12/19 22:25 Dose: 100 mls/hr Documented by: Pantoprazole Sodium 40 mg/ (Sodium Chloride) 110 mls @ 330 mls/hr IV Q24 [facility] Last Infusion: 02/12/19 16:35 Dose: Infused Documented by: Sodium Chloride () 250 mls @ 15 mls/hr IV .[id number] PRN PRN Reason: Saline Flush Sodium Chloride () 250 mls @ 15 mls/hr IV .[id number] PRN PRN Reason: Additional IVPB Infusion Ketorolac Tromethamine (Toradol) 15 mg IV Q6H PRN PRN PRN Reason: Pain Score 1-10/10 Morphine Sulfate () 2 - 4 mg IV Q1H PRN PRN PRN Reason: Pain Score 1-10/10 Ondansetron HCl (Zofran) 4 mg IV Q8H PRN PRN PRN Reason: NAUSEA Sodium Chloride () 10 - 40 ml IV UD PRN PRN Reason: SALINE FLUSH Medical Necessity - Tobacco Use Smoking Status: Never smoker Tobacco Use: Non-smoker Assessment/Plan All Active Problems (Last Updated 01/24/19 @ 07:50 by Edel Trotter) History of ovarian cancer (Acute) Ventral incisional hernia without obstruction or gangrene (Acute) Gastroesophageal reflux disease (Acute) History of Chou's esophagus (Acute) Screening for intestinal cancer (Acute) Patient encouraged to mobilize. We will treat him IV fluids. Will start clears however I anticipate postoperative ileus secondary to the amount of adhesio lysis required at the time of surgery. Ongoing postoperative care required Stan Vasquez M.D., F.A.C.S.
[2019-02-13 06:11] LABS: Absolute Neutrophil Count 17.4 X10^3/uL (2.0-7.7); Basophil% 0.5 % (0-1); Eosinophil# 0.02 X10^3/uL; Eosinophils% 0.1 % (0-5); Hematocrit 39.4 % (37-47); Hemoglobin 12.7 g/dL (12.0-15.0); Mean Corp Hgb Conc 32.2 g/dL (32-36); Mean Corpuscular Hgb 28.5 pg (27.0-32.0); Mean Corpuscular Volume 88.3 fL (81-99); Mean Platelet Vol. 8.8 fl (6.2-12.0); Monocyte# 1.47 X10^3/uL; Monocyte% 7.3 % (0-10); NRBC Flagged by Analyzer 0 % (0-5); Neutrophil # 17.44 X10^3/uL (2.7-7.7); Neutrophil % 86.3 % (47-70); Platelet Count 290 K/mm3 (150-450); RBC Distribution Width CV 12.7 % (11.6-14.6); RBC Distribution Width SD 40.9 fl (35.1-43.9); Red Blood Count 4.46 M/mm3 (4.2-5.4); White Blood Count 20.2 K/mm3 (4.4-11.0)
[2019-02-13 06:28] LABS: Anion Gap 5 (5-15); BUN 10 mg/dL (7-18); BUN/Creat Ratio 13.7 RATIO (10-20); Chloride 108 mmol/L (98-107); Creatinine, Serum 0.73 mg/dL (0.55-1.02); EST Glomerular Filtration Rate 86 mL/min (>60); Est Glom Filt Rate - Afr Amer 104 mL/min (>60); Estimated Creatinine Clearance 64.01 ml/min; Glucose 127 mg/dL (74-106); Potassium 3.7 mmol/L (3.5-5.1); Sodium Level 144 mmol/L (136-145)
[2019-02-13] MEDS: Enoxaparin 40 MG/0.4 ML Syringe SC (06:43)
[2019-02-13 07:29] VITALS: O2SAT 98
[2019-02-13 08:58] VITALS: BP 151/82; PULSE 89; RESP 16; TEMP 36.8; O2SAT 95
[2019-02-13] MEDS: Docusate Sodium 100 MG Capsule PO (09:01)
--- NOTE | 2019-02-13 11:15 | CASEMGMT ---
RN CM Face to Face with patient for initial transition planning/care coordination assessment. RN CM introduced self and role at [facility]. Patient lying in bed, alert and oriented. Patient willing to participate in assessment and is able to answer all questions appropriately. Care providers, pharmacy, and demographics verified. Patient wishes to discharge home, denies need for home health at this time. Patient states she has no further needs or concerns at this time. CM to follow for discharge planning needs that may arise. PCP: Traci Specialists: surgeon Christina Preferred Pharmacy: [facility] Retail Insurance: [facility] [place] Prescription Benefit: yes Living Will/HPOA: yes Ed Jeovanny LNOK: Living Arrangements: Patient lives with in 2 story home. Patient is independent at home. Transportation: self/ DME/HHC: Patient states she has cane, raised toilet, and BSC at home. Patient denies previous HHC. Disposition Plan: Patient to discharge home with family support and follow-up plans in place. Lakisha AYOUB, RN, CM
[2019-02-13] MEDS: Lactated Ringers 1,000 ML 30 ML IV (12:17)
[2019-02-13 14:16] VITALS: BP 152/79; PULSE 86; RESP 16; TEMP 37.1; O2SAT 93
--- NOTE | 2019-02-13 18:44 | NURSING ---
pt reports she expelled some blood into tissues when she coughed and blew her nose. prado brown/few flecks of bright red sputum in tissue- pt reports i have sinus drainage and i can feel it in the back of my throat, i had it before i came in. denies any sob, no active nasal dripping externally. pt denies any other c/o. will continue to monitor. pt will call for further needs/changes.
[2019-02-13 20:13] VITALS: BP 155/86; PULSE 88; RESP 18; TEMP 36.7; O2SAT 96
[2019-02-14 02:56] VITALS: BP 162/90; PULSE 86; RESP 18; TEMP 36.8; O2SAT 95
[2019-02-14] MEDS: Enoxaparin 40 MG/0.4 ML Syringe SC (05:36)
--- NOTE | 2019-02-14 06:11 | PN.SURG_ITS ---
Subjective: Patient feels well without complaints. Minimal abdominal discomfort. Feels some gas movement but no flatus. No nausea. - Physical Exam Vitals/I&O's: Vital Signs Temp Pulse Resp BP Pulse Ox 98.2 F 86 18 162/90 H 95 02/14/19 02:56 02/14/19 02:56 02/14/19 02:56 02/14/19 02:56 02/14/19 02:56 Oxygen Flow Rate (L/min) 2 Oxygen Delivery Method Room Air Weight: 223 lb 12.307 oz Body Mass Index (BMI) 40.9 Intake and Output for Last 24 Hours 02/12/19 02/13/19 02/14/19 23:59 23:59 23:59 Intake Total 2225.00 / 2225.00 1590.00 / 1590.00 240 / 240 Output Total 1300 / 1300 1700 / 1700 575 / 575 Balance 925.00 / 925.00 -110.00 / -110.00 -335 / -335 Abdomen: Soft, Non Tender, Hypoactive Bowel Sounds Laboratory Results 02/13/19 05:42: Sodium 144, Potassium 3.7, Chloride 108 H, Carbon Dioxide 31.0, Anion Gap 5, BUN 10, Creatinine 0.73, Estim Creat Clear Calc 64.01, Est GFR (MDRD) Af Amer 104, Est GFR (MDRD) Non-Af 86, BUN/Creatinine Ratio 13.7, Glucose 127 H, Calcium 9.0 02/13/19 05:42: WBC 20.2 H, RBC 4.46, Hgb 12.7, Hct 39.4, MCV 88.3, MCH 28.5, MCHC 32.2, RDW Std Deviation 40.9, RDW Coeff of Frank 12.7, Plt Count 290, MPV 8.8, Immature Gran % (Auto) 0.800, Neut % (Auto) 86.3 H, Lymph % (Auto) 5.0 L, [place] % (Auto) 7.3, Eos % (Auto) 0.1, Baso % (Auto) 0.5, Absolute Neuts (auto) 17.4 H, Absolute Lymphs (auto) 1.00, Nucleated RBC % 0 Current Medications Acetaminophen (Tylenol) 650 mg PO Q6H PRN PRN PRN Reason: Pain Score 1-10/10 Hydrocodone Bitart/Acetaminophen ([place] 5mg-325mg) 1 - 2 tablet PO Q4H PRN PRN PRN Reason: Pain Score 1-10/10 Docusate Sodium (Colace) 100 mg PO DAILY [facility] Last Admin: 02/13/19 09:01 Dose: 100 mg Documented by: Enoxaparin Sodium (Lovenox) 40 mg SC DAILY@0600 [facility] Last Admin: 02/14/19 05:36 Dose: 40 mg Documented by: Lactated Ringer's () 1,000 mls @ 30 mls/hr IV .[id number] [facility] Last Admin: 02/13/19 12:17 Dose: 30 mls/hr Documented by: Pantoprazole Sodium 40 mg/ (Sodium Chloride) 110 mls @ 330 mls/hr IV Q24 [facility] Last Infusion: 02/13/19 09:21 Dose: Infused Documented by: Sodium Chloride () 250 mls @ 15 mls/hr IV .[id number] PRN PRN Reason: Saline Flush Sodium Chloride () 250 mls @ 15 mls/hr IV .[id number] PRN PRN Reason: Additional IVPB Infusion Ketorolac Tromethamine (Toradol) 15 mg IV Q6H PRN PRN PRN Reason: Pain Score 1-10/10 Morphine Sulfate () 2 - 4 mg IV Q1H PRN PRN PRN Reason: Pain Score 1-10/10 Ondansetron HCl (Zofran) 4 mg IV Q8H PRN PRN PRN Reason: NAUSEA Sodium Chloride () 10 - 40 ml IV UD PRN PRN Reason: SALINE FLUSH Medical Necessity - Tobacco Use Smoking Status: Never smoker Tobacco Use: Non-smoker Assessment/Plan All Active Problems (Last Updated 01/24/19 @ 07:50 by Edel Trotter) History of ovarian cancer (Acute) Ventral incisional hernia without obstruction or gangrene (Acute) Gastroesophageal reflux disease (Acute) History of Chou's esophagus (Acute) Screening for intestinal cancer (Acute) We will advance diet. Hopeful discharge later today. CBC pending Stan Vasquez M.D., F.A.C.S.
[2019-02-14 06:25] LABS: Absolute Lymphocyte Count 1.12 X10^3/uL (0.83-4.51); Absolute Neutrophil Count 11.4 X10^3/uL (2.0-7.7); Basophil% 0.7 % (0-1); Eosinophil# 0.46 X10^3/uL; Eosinophils% 3.2 % (0-5); Hematocrit 36.7 % (37-47); Hemoglobin 11.6 g/dL (12.0-15.0); Lymphocyte # 1.12 X10^3/ul (4.0); Lymphocyte % 7.9 % (19-41); Mean Corp Hgb Conc 31.6 g/dL (32-36); Mean Corpuscular Volume 88.6 fL (81-99); Mean Platelet Vol. 8.7 fl (6.2-12.0); Monocyte# 0.92 X10^3/uL; Monocyte% 6.5 % (0-10); NRBC Flagged by Analyzer 0 % (0-5); Neutrophil % 80.6 % (47-70); Platelet Count 233 K/mm3 (150-450); RBC Distribution Width CV 12.8 % (11.6-14.6); RBC Distribution Width SD 41.4 fl (35.1-43.9); Red Blood Count 4.14 M/mm3 (4.2-5.4); White Blood Count 14.2 K/mm3 (4.4-11.0)
[2019-02-14 07:25] VITALS: O2SAT 94
[2019-02-14 08:21] VITALS: BP 155/72; PULSE 83; RESP 18; TEMP 36.9; O2SAT 93
[2019-02-14] MEDS: Docusate Sodium 100 MG Capsule PO (08:21)
[2019-02-14 13:43] VITALS: BP 144/68; PULSE 84; RESP 18; TEMP 36.7; O2SAT 93
--- NOTE | 2019-02-14 17:55 | PCM.DC.SUM ---
Discharge Date and Diagnosis Date of Admission: 02/12/19 Date of Discharge: 02/14/19 - Primary Discharge Diagnosis Complex incarcerated multiple defect ventral incisional hernias Extensive intra-abdominal adhesions Hospital Course and Treatment Operations: - - Hybrid open and laparoscopic extensive intra-abdominal lysis of adhesions and laparoscopic ventral incisional herniorrhaphies with mesh Summary of Care Provided: The patient is a 63 year old F was taken to the operating room. Through a combination of laparoscopic and open and hand-assisted approach and extensive intra-abdominal lysis of adhesions that involved small and large bowel was required to release bowel from a multiple defect ventral incisional hernia problem. Then a laparoscopic ventral incisional hernia repair with mesh was performed. Bilateral tap block was performed. The patient tolerated the procedure well. On postoperative day 1 she was initiated on clear liquids which was then advanced. By February 14, 2019 she was passing flatus was comfortable and made sufficient recovery to allow for discharge. The tap block worked to perfection and she did not require narcotic medication. She will be discharged on her admission medicines. Postoperative surgical follow-up was scheduled for 7 to 10 days. She is discharged on a full liquid diet with advance as tolerated. Progress and prognosis felt to be good. Stan Vasquez M.D., F.A.C.S. - Physical Exam Vitals/I&O's: Vital Signs Temp Pulse Resp BP Pulse Ox 98.1 F 84 18 144/68 H 93 02/14/19 13:43 02/14/19 13:43 02/14/19 13:43 02/14/19 13:43 02/14/19 13:43 Oxygen Flow Rate (L/min) 2 Oxygen Delivery Method Room Air Weight: 223 lb 12.307 oz Body Mass Index (BMI) 40.9 Intake and Output for Last 24 Hours 02/12/19 02/13/19 02/14/19 23:59 23:59 23:59 Intake Total 2225.00 / 2225.00 1590.00 / 1590.00 1572 / 1572 Output Total 1300 / 1300 1700 / 1700 1475 / 1475 Balance 925.00 / 925.00 -110.00 / -110.00 97 / 97 Laboratory Results 02/14/19 06:05: WBC 14.2 H, RBC 4.14 L, Hgb 11.6 L, Hct 36.7 L, MCV 88.6, MCH 28.0, MCHC 31.6 L, RDW Std Deviation 41.4, RDW Coeff of Frank 12.8, Plt Count 233, MPV 8.7, Immature Gran % (Auto) 1.100 H, Neut % (Auto) 80.6 H, Lymph % (Auto) 7.9 L, [place] % (Auto) 6.5, Eos % (Auto) 3.2, Baso % (Auto) 0.7, Absolute Neuts (auto) 11.4 H, Absolute Lymphs (auto) 1.12, Nucleated RBC % 0 Current Medications Acetaminophen (Tylenol) 650 mg PO Q6H PRN PRN PRN Reason: Pain Score 1-10/10 Hydrocodone Bitart/Acetaminophen ([place] 5mg-325mg) 1 - 2 tablet PO Q4H PRN PRN PRN Reason: Pain Score 1-10/10 Docusate Sodium (Colace) 100 mg PO DAILY [facility] Last Admin: 02/14/19 08:21 Dose: 100 mg Documented by: Enoxaparin Sodium (Lovenox) 40 mg SC DAILY@0600 [facility] Last Admin: 02/14/19 05:36 Dose: 40 mg Documented by: Pantoprazole Sodium 40 mg/ (Sodium Chloride) 110 mls @ 330 mls/hr IV Q24 [facility] Last Infusion: 02/14/19 10:00 Dose: Infused Documented by: Ketorolac Tromethamine (Toradol) 15 mg IV Q6H PRN PRN PRN Reason: Pain Score 1-10/10 Morphine Sulfate () 2 - 4 mg IV Q1H PRN PRN PRN Reason: Pain Score 1-10/10 Ondansetron HCl (Zofran) 4 mg IV Q8H PRN PRN PRN Reason: NAUSEA Discharge Diet: Light diet - advance as tolerated - if you have questions about your diet instructions, please talk to you doctor. Discharge Activity: May Not Drive - for 1 week or while taking narcotic pain medicine., May Shower May shower in (days): 0 Call your doctor if your incision/area has: Continuous Slow Oozing, Sudden Increased Bleeding, Increased Pain/ Swelling, Increased Redness, Foul Smelling Discharge Call your doctor if you observe: Fever of 101 or Higher Suture Line Care: Avoid Pulling/Pushing, Avoid Pinching/Bending Additional Dressing/Incision Instructions:: Change or remove dressing in 2 days. Leave steri-strips in place for 1 week. Home Medications: Medications to take at Discharge RX: Calcium Carb/Vitamin D [Caltrate-600 With Vit D Tab] 1 tab PO DAILY@0800 07/01/13 RX: Losartan/Hydrochlorothiazide [Hyzaar 100-25 Tablet] 1 tab PO DAILY 07/01/13 RX: Rosuvastatin Calcium [Crestor] 5 mg PO QHS 07/01/13 RX: buPROPion XL [Wellbutrin Xl] 150 mg PO DAILY 07/01/13 RX: Cetirizine HCl [Zyrtec] 10 mg PO DAILY 11/27/14 RX: Esomeprazole Mag Trihydrate [Nexium] 40 mg PO BID 11/27/14 multivitamin,ls-cipt-llwlrgck 1 tab PO QDAY 03/04/17 levothyroxine 25 mcg tablet 25 mcg PO DAILY 01/24/19 RX: Sucralfate [Carafate] 1 gm PO 4X/DAY #120 tab 01/30/19 RX: Senna [Senokot] 1 tab PO DAILY 02/07/19 Primary Care Physician: Riri Aviles DO [Primary Care Provider] - Please Follow Up With: Stan Vasquez MD - [phone] When: Call to make an appointment to be seen in about 7-10 days. Medical Necessity - Tobacco Use Smoking Status: Never smoker Tobacco Use: Non-smoker Meaningful Use Info Meaningful Use Diagnoses (Choose all that apply): None applicable
[2019-02-14 18:09] VITALS: BP 149/80; PULSE 88; RESP 18; TEMP 36.8; O2SAT 96
== END 2019-02-14 18:30 | disposition home or self-care (01) | DRG 336 ==
LOC: MS3 14:35
PROVIDERS: Anesthesiology; Admitting Provider Surgery; Family Provider Internal Medicine; PCP Internal Medicine; Referring Provider Surgery; Visit Provider Surgery
PROC: 0WQF4ZZ Repair Abdominal Wall, Percutaneous Endoscopic Approach (ICD-10-PCS; principal; 2019-02-12 07:40)
DX: K43.0 Incisional hernia with obstruction, without gangrene (principal); Z68.41 Body mass index [BMI] 40.0-44.9, adult; Z53.31 Laparoscopic surgical procedure converted to open procedure; K66.0 Peritoneal adhesions (postprocedural) (postinfection); Z85.43 Personal history of malignant neoplasm of ovary; K21.9 Gastro-esophageal reflux disease without esophagitis; Z90.710 Acquired absence of both cervix and uterus; Z90.722 Acquired absence of ovaries, bilateral; Z90.79 Acquired absence of other genital organ(s); E66.9 Obesity, unspecified
CPT/HCPCS: 36415; 80048; 84443; 85025; 85027; 93005; 99251; J7120; C1781; G0463; J2405; J3490

== ENCOUNTER → 2019-03-18 11:18 | Outpatient (CLI) | payer OTHER, SELFPAY ==
[2019-02-12 14:58] VITALS: BMI 40.9
[2019-03-18 12:39] LABS: Free T3 2.9 pg/mL (2.18-3.98); T4 Free Direct 1.23 ng/dL (0.76-1.46); Thyroid Stim Hormone (TSH) 2.19 uIU/mL (0.358-3.74)
[2019-03-19 12:28] LABS: Thyroid Peroxidase AB 10 IU/mL (0-34)
== END ==
PROVIDERS: PCP Internal Medicine; Referring Provider Internal Medicine; Visit Provider Internal Medicine
DX: R79.89 Other specified abnormal findings of blood chemistry (principal)
CPT/HCPCS: 36415; 84439; 84443; 84481; 86376

== ENCOUNTER → 2019-03-25 12:27 | Outpatient (CLI) | payer OTHER, SELFPAY ==
[2019-02-12 14:58] VITALS: BMI 40.9
--- NOTE | 2019-03-25 12:29 | BI_ITS ---
MAMMOGRAPHY - BILATERAL SCREENING REASON FOR EXAM: Female, 64 years old. Routine annual screening examination. PERTINENT HISTORY: Non-contributory. TECHNIQUE: Digital bilateral breast shama (3D mammographic acquisition) in the CC and MLO projections. 2-D mediolateral oblique (MLO) and craniocaudad (CC) views of both breasts were obtained. CAD: Full Field Digital Mammography with Computer Added Detection was performed. COMPARISON: Comparison is made with prior study dated July 04, 2017 and February 16, 2014. FINDINGS: Breast Composition: The breasts are almost entirely fatty. There are no dominant masses or suspicious calcifications. Stable 4.6 mm well-defined nodule in the upper lateral portion of the right breast. No other significant abnormalities are identified. There has been no significant change since the prior study. BI/SCREEN MAMM (CAD) W/SHAMA BILAT IMPRESSION: Stable bilateral screening mammogram. Yearly follow-up mammogram recommended. (A) ASSESSMENT CATEGORY: BIRADS Category 2: Benign. A letter regarding these results will be sent to the patient by the facility within 30 days. Approximately 10% of breast cancers are not detected by mammography. A normal mammogram should not delay biopsy of a clinically suspicious abnormality. [id number] Electronically Signed: Basim Sharma, at 13:53 EST , Service support ,
== END ==
PROVIDERS: PCP Internal Medicine; Referring Provider Internal Medicine; Visit Provider Internal Medicine
DX: Z12.31 Encounter for screening mammogram for malignant neoplasm of breast (principal)
CPT/HCPCS: 77063; 77067

== ENCOUNTER → 2019-07-17 08:04 | Outpatient (CLI) | payer OTHER, SELFPAY ==
[2019-02-12 14:58] VITALS: BMI 40.9
[2019-07-17 08:24] LABS: Mucous, Urine 0 SEEN /hpf (<or=2+); Red Blood Cells-Urine 0 SEEN /hpf (0-5)
[2019-07-17 08:28] LABS: Color, Urine Straw (Yellow); Glucose, Dipstick Normal (Normal); Ketone-Dipstick Negative (Negative); Leukocyte Esterase-Dipstick Negative /ul (Negative); Nitrite-Dipstick Negative (Negative); Occult Blood-Urine Negative /ul (Negative); Protein-Dipstick Negative (Negative); Urine Bilirubin Dipstick Negative (Negative); Urine Clarity Clear (Clear); Urine Urobilinogen Normal (Normal)
[2019-07-17 08:38] LABS: White Blood Cells 0-5 SEEN /hpf (0-5)
[2019-07-17 08:39] LABS: Bacteria 1+ /hpf (None Seen); Squamous Epithelial Cells - UA 0-5 SEEN /hpf (5-10)
[2019-07-17 09:02] LABS: Microalbumin,Random Urine < 5.0 mg/L (NO RANGE EST.)
[2019-07-17 09:14] LABS: AST(SGOT) 14 U/L (15-37); Alanine Aminotransfer ALT/SGPT 24 U/L (13-56); Albumin, Serum 3.8 g/dL (3.2-5.0); Alkaline Phosphatase 79 U/L (45-117); Anion Gap 3 (5-15); BUN 14 mg/dL (7-18); BUN/Creat Ratio 20.3 RATIO (10-20); Calcium,Total 9.8 mg/dL (8.5-10.1); Chloride 105 mmol/L (98-107); Cholesterol 188 mg/dL (200); Creatinine, Serum 0.69 mg/dL (0.55-1.02); EST Glomerular Filtration Rate 92 mL/min (>60); Est Glom Filt Rate - Afr Amer 111 mL/min (>60); Globulin 3.8 g/dL (2.2-4.2); Glucose 108 mg/dL (74-106); Hemoglobin A1c 5.8 % (3.8-5.6); High Density Lipoprotein 43 mg/dL; Potassium 3.9 mmol/L (3.5-5.1); Protein, Total 7.6 g/dL (6.4-8.2); Sodium Level 139 mmol/L (136-145); Thyroid Stim Hormone (TSH) 3.09 uIU/mL (0.358-3.74); Triglycerides 199 mg/dL; Very Low Density Lipoprotein 40 mg/dL (5-40)
== END ==
PROVIDERS: PCP Internal Medicine; Referring Provider Internal Medicine; Visit Provider Internal Medicine
DX: R73.02 Impaired glucose tolerance (oral) (principal); I10 Essential (primary) hypertension; E78.49 Other hyperlipidemia
CPT/HCPCS: 36415; 80053; 80061; 81001; 82043; 82570; 83036; 84443

== ENCOUNTER → 2020-01-05 10:16 | Outpatient (CLI) | payer OTHER, SELFPAY ==
--- NOTE | 2020-01-05 10:19 | RAD_ITS ---
HISTORY: KNEE PAIN, PARTIAL REPLACEMENT IN 2004 Technique: Right Knee; AP, lateral, and oblique radiographs Comparison: May 15, 2016 Findings: No acute fracture or dislocation. Left holly-arthroplasty is cemented in place. It is cemented within the medial compartment of the knee. Right lateral compartment of the knee demonstrates progressive arthritis with further collapse of the joint space, cortical sclerosis, and increasing osteophytes. Ossicle at the insertion of the quadriceps tendon onto the patella consistent with calcific tendinosis remains. A small knee effusion remains. RAD/Knee 4 or More Views IMPRESSION: Stable appearance to the cemented hemiarthroplasty within the medial compartment of the knee. Progressive arthritis within the lateral compartment of the knee without a prosthesis. Persistent severe arthritis within the patellofemoral joint. at 0536 Reported and signed by: Julian Irby MD Electronically Signed: Julian Irby MD at 5:34 EST Tel , Service support ,
== END ==
PROVIDERS: PCP Internal Medicine; Referring Provider Orthopaedic Surgery; Visit Provider Orthopaedic Surgery
DX: M25.561 Pain in right knee (principal)
CPT/HCPCS: 73564

== ENCOUNTER → 2020-01-31 08:31 | Outpatient (CLI) | payer OTHER, SELFPAY ==
[2020-01-05 10:18] VITALS: BMI 39.6
--- NOTE | 2020-01-31 08:35 | CT_ITS ---
CT RIGHT LOWER EXTREMITY WITHOUT CONTRAST INDICATION: Operative planning for right knee arthroplasty COMPARISON: Right knee x-ray 01/05/2020 TECHNIQUE: Axial images of the right hip, right knee and right ankle. Sagittal and coronal of each segment provided. FINDINGS: The right hip is normally aligned with circumferential narrowing of the hip joint. Marginal osteophyte formation of the acetabulum and femoral head. Visualized soft tissue elements of the pelvis are unremarkable. There is severe joint space narrowing of the lateral compartment as well as the patellofemoral compartment. Subchondral cyst formation of the lateral femoral condyle/patellofemoral facet. Medial compartment hemiarthroplasty is noted causing moderate spray artifact but no obvious periimplant lucency. A fragmented osteophyte of the superior patella is identified. Small joint effusion present. Tibiotalar articulation is normally aligned. The calcaneus and talus are unremarkable. Subtalar joints are normal. Mild degenerative spurring and subcortical degenerative cysts of the tarsal-metatarsal articulations. CT/Extremity Lower without Contra IMPRESSION: 1. Medial compartment (knee) arthroplasty without implant lucency. 2. Severe lateral and patellofemoral joint arthrosis. 3. Small joint effusion. 4. Mild right hip osteoarthrosis. Electronically Signed: Adrian Cano MD ([place]) at 21:12 EST , Service support ,
[2020-01-31 08:42] LABS: Mucous, Urine 0 SEEN /hpf (<or=2+)
[2020-01-31 09:16] LABS: Color, Urine Straw (Yellow); Glucose, Dipstick Normal (Normal); Ketone-Dipstick Negative (Negative); Leukocyte Esterase-Dipstick 25 /ul (Negative); Nitrite-Dipstick Negative (Negative); Occult Blood-Urine Negative /ul (Negative); Protein-Dipstick Negative (Negative); Urine Bilirubin Dipstick Negative (Negative); Urine Clarity Clear (Clear); Urine Urobilinogen Normal (Normal)
[2020-01-31 09:16] LABS: Absolute Lymphocyte Count 1.52 X10^3/uL (0.83-4.51); Eosinophil# 0.25 X10^3/uL; Eosinophils% 2.6 % (0-5); Hematocrit 43.4 % (37-47); Lymphocyte # 1.52 X10^3/ul (4.0); Lymphocyte % 15.9 % (19-41); Mean Corp Hgb Conc 32.3 g/dL (32-36); Mean Corpuscular Hgb 28.4 pg (27.0-32.0); Mean Platelet Vol. 8.8 fl (6.2-12.0); Monocyte# 0.65 X10^3/uL; Monocyte% 6.8 % (0-10); NRBC Flagged by Analyzer 0 % (0-5); Neutrophil # 7.01 X10^3/uL (2.7-7.7); Neutrophil % 73.3 % (47-70); Platelet Count 317 K/mm3 (150-450); RBC Distribution Width CV 12.7 % (11.6-14.6); RBC Distribution Width SD 40.8 fl (35.1-43.9); Red Blood Count 4.93 M/mm3 (4.2-5.4); White Blood Count 9.6 K/mm3 (4.4-11.0)
[2020-01-31 09:40] LABS: Hemoglobin A1c 5.8 % (3.8-5.6)
[2020-01-31 09:42] LABS: ALB/GLOB Ratio 1.1 RATIO (0.9-2.4); AST(SGOT) 17 U/L (15-37); Alanine Aminotransfer ALT/SGPT 27 U/L (13-56); Albumin, Serum 3.7 g/dL (3.2-5.0); Alkaline Phosphatase 81 U/L (45-117); Anion Gap 4 (5-15); BUN 12 mg/dL (7-18); BUN/Creat Ratio 17.3 RATIO (10-20); Calcium,Total 9.5 mg/dL (8.5-10.1); Chloride 104 mmol/L (98-107); Cholesterol 181 mg/dL (200); EST Glomerular Filtration Rate 91 mL/min (>60); Est Glom Filt Rate - Afr Amer 110 mL/min (>60); Globulin 3.4 g/dL (2.2-4.2); Glucose 104 mg/dL (74-106); High Density Lipoprotein 46 mg/dL; Magnesium 2.2 mg/dL (1.6-2.6); Potassium 4.3 mmol/L (3.5-5.1); Protein, Total 7.1 g/dL (6.4-8.2); Sodium Level 140 mmol/L (136-145); Thyroid Stim Hormone (TSH) 2.42 uIU/mL (0.358-3.74); Triglycerides 240 mg/dL; Very Low Density Lipoprotein 48 mg/dL (5-40)
[2020-01-31 09:46] LABS: Microalbumin:Creatinine Ratio 4.6 mg/g CRE (<30 mg/g CRE)
[2020-01-31 10:07] LABS: Prothrombin Time (Protime)PT. 12.2 SECONDS (11.7-14.9)
[2020-01-31 10:07] LABS: Bacteria 1+ /hpf (None Seen); Red Blood Cells-Urine 0-5 SEEN /hpf (0-5); Squamous Epithelial Cells - UA 0-5 SEEN /hpf (5-10); White Blood Cells 0-5 SEEN /hpf (0-5)
[2020-01-31 10:08] LABS: Partial Thromboplast Time 28.1 Seconds (24.1-36.2)
== END ==
PROVIDERS: Anesthesiology; PCP Internal Medicine; Referring Provider Orthopaedic Surgery; Visit Provider Orthopaedic Surgery
DX: M17.11 Unilateral primary osteoarthritis, right knee (principal); Z96.651 Presence of right artificial knee joint; R73.02 Impaired glucose tolerance (oral); E78.49 Other hyperlipidemia; E03.9 Hypothyroidism, unspecified
CPT/HCPCS: 36415; 73700; 80053; 80061; 81001; 82043; 82570; 83036; 83735; 84443; 85025; 85610; 85730; 86850; 86900; 86901; 87081

== ENCOUNTER 2020-02-10 09:47 | Inpatient (IN) | payer OTHER, SELFPAY ==
[2020-01-05 10:18] VITALS: BMI 39.6
--- NOTE | 2020-02-02 10:18 | EKG12_ITS ---
Test Reason : PREOP Blood Pressure : / mmHG Vent. Rate : 081 BPM Atrial Rate : 081 BPM P-R Int : 196 ms QRS Dur : 092 ms QT Int : 346 ms P-R-T Axes : 070 -48 064 degrees QTc Int : 401 ms Normal sinus rhythm Left anterior fascicular block Abnormal ECG Confirmed by MONIQUE BILLINGS, JOSE ANTONIO ([id number]), commercial production editor CATHY HOWE ([id number]) on 02/05/2020 10:23:08 AM Referred By: Mainor Eric Confirmed By:JUD AMAYA MD
[2020-02-10] VITALS (9 sets, daily range): BP systolic 135–173; BP diastolic 71–94; PULSE 70–96; RESP 16–18; TEMP 35.9–36.6; O2SAT 95–100; BMI 40.1; BMI 44.3
[2020-02-10] MEDS: Betamethasone/Betamethasone 30 MG/5 ML Vial (04:03)
[2020-02-10] MEDS: Lactated Ringers 1,000 ML 999 ML IV (11:03)
[2020-02-10] MEDS: Acetaminophen 500 MG Tablet 1000 MG PO ×2 (11:21→21:57)
[2020-02-10] MEDS: Celecoxib 200 MG Capsule 400 MG PO (11:21)
[2020-02-10] MEDS: Gabapentin 600 MG Tablet PO (11:22)
[2020-02-10] MEDS: Scopolamine 1mg/72hr Patch 1 PATCH TD (11:22)
[2020-02-10] MEDS: Insulin Lispro 100 UNIT/ML INSULN.PEN SC (11:32)
[2020-02-10] MEDS: Cefazolin 2 GM in 0.9% Normal Saline 100 ML IV (11:37)
[2020-02-10 11:41] LABS: Bedside Glucose 188 mg/dL (70-110)
--- NOTE | 2020-02-10 11:44 | HP.PCM_ITS ---
History and Physical Date of Admission: 02/10/20 Intake Intake Visit Reasons: RIGHT KNEE Allergies methylprednisolone sodium succinate [From Solu-Medrol] Adverse Reaction (Verified 01/26/20 10:23) Other [facility] Medical History History of ovarian cancer (Acute) Ventral incisional hernia without obstruction or gangrene (Acute) Gastroesophageal reflux disease (Acute) History of Chou's esophagus (Acute) Arthritis (Acute) Barretts esophagus (Acute) GERD (gastroesophageal reflux disease) (Acute) Hay fever (Acute) Knee pain (Acute) Ovarian cancer (Acute) hypertension (Acute) Surgical History Bilateral carpal tunnel syndrome (Acute) History of carpal tunnel release of both wrists (Acute) History of delivery (Acute) History of ventral hernia repair (Acute ~02/12/19) S/P ZARI-BSO (Acute) knee replacement (Acute) knee scope (Acute) Family History Father Diabetes Mother Hypertension Heart disease Cancer lung Grandmother CVA (cerebral vascular accident) Social History (Updated 01/28/20 @ 10:50 by Jonah CHARLES, PA) Smoking Status: Never smoker alcohol intake: never HPI RIGHT KNEE: Details: Parts of this documentation were recorded by a scribe, this documentation accurately reflects the service provided and the decisions made by Jonah dixon PA 01/28/20 0906. FRANCES PARHAM is a 64 year old F here today for right knee IOVERA treatment. PAtient is schedule to have a right TKA on 02/10/2020. Patient continues to have right knee pain. Denies numbness, tingling or other associated symptoms. ROS Musc Reports joint pain Ortho Exam General General: Yes no acute distress Neurologic: Yes alert Psychologic: Yes reasonable and appropriate Right Knee Skin/Wound: Yes CDI, No erythema, No ecchymosis, No swelling Homans Sign: No Knee ROM: Yes ROM-Extension -20 to 0, No ROM-Flexion 0-140 (aprox 100) Examination: Yes Lat jt line tenderness, Yes TTP inf pole patella, Yes Pain with flexion (Some stiffness) Stability: NML: Anterior Drawer, NML: Posterior Drawer, NML: Valgus 30, NML: Varus 30 Patella Translation: 1 Apprehension with Lateral Translation: No Patella Grind: Yes KNEE: No acute abnormalities on inspection. No ecchymosis/bruising, erythema, or other skin changes to indicate infection or underlying inflammation. Mild swelling/effusion in the knee. Minor lateral joint line tenderness and some stiffness with flexion along with decreased motion. Left Knee Patella Translation: 1 Office Procedures Iovera Details:: Preoperative diagnosis :osteoarthritis of right knee Postoperative diagnosis: Same Procedure: Cryotherapy with Iovera device to anterior femoral cutaneous nerve and 2 branches of the infrapatellar saphenous nerve III nerves in total Description of procedure: Patient was brought back to the procedure room the operative extremity was identified by both patient and physician. The PIP flexion crease was measured to the midpoint of the patella and this distance was divided in 3 resulting in 10 cm location proximal to the midpoint of the patella. This line was extended medial and lateral to the extent of the edges of the patella. This was our treatment line for the anterior femoral cutaneous nerve. A second treatment line was made 5 cm medial to the inferior pole of the patella and 5 cm distally. The leg was prepped with alcohol and Betadine. Lidocaine with epi was used along the treatment lines. Using the Iovera device treatment lines were treated with 1 minute cycles. Reproduction of paresthesias was monitored in the area of nerve distribution. Once all 3 nerves were treated across the 2 treatment lines patient was cleaned and a light dressing with 4 x 4 and Americo wrap was applied. Patient tolerated the procedure without complication. Assessment & Plan Problems 1. Chronic pain of right knee M25.561; G89.29 Plan Patient presents the office today for Iovera treatment on the right knee. We discussed the procedure in detail and all of her questions were answered today. Consent was signed in office today. Patient tolerated the procedure with minimal discomfort and no complications were observed. Patient can ice today. She should keep the area covered and clean today and give 24 hours before bathing. Monitor notify of any erythema, increased pain, swelling, warmth, or any other signs of inflammation or infection. Orders Orders: Iovera Today M25.569 Coding Level of Care Code Attention Commissary Representative Diagnoses Chronic pain of right knee M25.561; G89.29 ??Chronicity: chronic Comment CPT for Iovera treatment. I have re-examined the patient. There are no clinical changes since date of exam Procedure Criteria Procedure Type: Elective COVID Risk Discussion: The surgeon/proceduralist and patient have discussed in detail the risk of exposure to and/or potential harm posed by the COVID-19 virus with having a surgery/procedure at this time versus the risk of delaying the surgery/procedure. It is not possible to know either the risk of delaying the surgery or procedure or chance of getting an infection with perfect accuracy, but a joint decision was made between the patient and the surgeon/proceduralist to proceed at this time with the scheduled surgery/procedure as indicated on the consent form.
[2020-02-10] MEDS: dexAMETHasone 10 MG/ML Vial IV (12:20)
[2020-02-10] MEDS: Epinephrine (1 mg/ml) 1 MG/ML VIAL (14:03)
[2020-02-10] MEDS: 0.9% Normal Saline (Pres. free 10 ML Vial (14:03)
[2020-02-10] MEDS: Bupivacaine 0.5% PF 10 ML VIAL (14:03)
[2020-02-10] MEDS: Lactated Ringers 1,000 ML 125 ML IV (14:45)
--- NOTE | 2020-02-10 15:08 | OP.PCM_ITS ---
Report of Operation Date of Procedure: 02/10/20 Description of Surgical Findings:: Preoperative diagnosis: Right knee DJD with previous unicompartmental knee arthroplasty Postoperative diagnosis: [Same] Procedure: Right knee conversion of unicompartmental knee arthroplasty to total knee arthroplasty revision Implant: Ekta triathlon cemented PS femoral component size [3] with a 5 mm distal medial augment and a 5 mm posterior medial augment, cemented tibial baseplate size [4] with 5 mm medial augment, cemented [asymmetric] patella size [32], polyethylene X3 size [9] [PS] Anesthesia: [spinal] with adductor canal block Tourniquet time: [12] [minutes at 300 mmHg] Complications: None Condition: Stable to PACU Estimated blood loss: 175 cc Indication for procedure: This is a 64-year-old female who had undergone medial unicompartmental knee arthroplasty many years prior who has had progression of arthritic change in her lateral and patellofemoral compartments to a severe type and has failed conservative treatment and wished to undergo a revision of unicompartmental knee to a total knee arthroplasty. Risk benefits and alternatives of the procedure were reviewed including risk of bleeding infection nerve artery tissue damage need for further surgery continued pain mechanical knee pain stiffness and expected postoperative course. Procedure: The patient was met in the preoperative holding area. The operative extremity was identified by both patient and physician and was marked. Patient was met by anesthesia. An adductor canal block was placed by anesthesia [postoperatively] the patient was brought back to the operating room on a wheeled cart and transferred to the operating table in the supine position. Anesthesia was started. A well-padded tourniquet was placed on the operative extremity. The patient was prepped and draped in the usual sterile fashion. A timeout was called to ensure the proper patient procedure and extremity were being contemplated. An Esmarch was used to exsanguinate the extremity. The tourniquet was inflated. She had a previous oblique type incision for her prior surgery and due to the fact that this was many years ago and she has a very thick subcutaneous layer I felt it would be safe to perform a slightly lateral to midline incision as if I were to use her oblique incision it would have necessitated me to have a very large flap. Dissection was carried down full- thickness flaps medial and lateral to the joint capsule medial parapatellar arthrotomy was performed. The knee was brought in full extension the infrapatellar fat pad was excised suprapatellar fat pad was elevated off the anterior femur and partially excised. At this point femoral array was placed intra-articularly and tibial array was placed after stab incisions were made the hip center of rotation was performed followed by blue probe to maile out anatomic landmarks and calibrate the bony anatomy with our CT model. Once this was performed all osteophytes were removed there was noted to be very large patellar osteophytes and femoral osteophytes. Following this the knee was then stressed for the medial and lateral collateral ligaments in extension and in flexion these numbers were saved in the planned components were positioned to perform proper balancing of the implant .following this the cemented unicompartmental knee arthroplasty was removed however when this occurred there was a defect in the medial femoral condyle and tibial plateau, which raised the concern for need of a potential augments. We then proceeded to use the robotic arm to perform our femoral and tibial cuts we then trialed and felt augments would be appropriate on the distal medial posterior medial femoral condyle as well as a 5 mm augment on the medial tibial plateau the robotic arm was used to perform these cuts and a reciprocating saw was used to perform the linear cuts. We then proceeded with a posterior stabilized box cutting jig which was pinned into place and our femoral box was made with reciprocating saw and an osteotome. Following this we then trialed and were satisfied with balancing and range of motion. We then proceeded to prepare our tibia with a reamer and fin punch preparation. We then proceeded to thoroughly irrigate the knee and cement our components in place we placed a trial liner. While the cemented hardened and then replaced it with our PS polyethylene insert. The cement was hardening by the time we got to the patellar component therefore we waited until the cement had completely hardened and then opened a half batch of cement completed cementing the patellar component we then held this under compression until the cement was hardened performed thorough irrigation of the knee and Betadine rinse followed by several more liters of irrigation. It should be noted prior to hardware implantation a posterior capsular injection with her standard cocktail was performed. The capsule was closed with #1 [id number] Ethibond followed by 0 Vicryl and 2-0 Vicryl in subcutaneous tissue followed by jaylene in the skin dressing was applied to form of Mepilex Ag and a thigh-high AMBERLY hose. Patient tolerated the procedure well all counts were correct. She was brought back to the PACU in stable condition.
--- NOTE | 2020-02-10 15:25 | RAD_ITS ---
STUDY: X-RAY - RIGHT KNEE REASON FOR EXAM: Female, 64 years old. Post op right knee TECHNIQUE: 2 view(s) of the knee. COMPARISON: Comparison is made with prior study dated 01/05/2020. FINDINGS: Normal visualized distal femur. Normal visualized proximal tibia and fibula. Normal proximal tibiofibular articulation. The patient is status post total knee replacement. There is good alignment. Postoperative soft tissue changes. RAD/Knee 1 or 2 Views IMPRESSION: Status post right total knee replacement. There is good alignment. Postoperative soft tissue changes. Electronically Signed: Basim Sharma, at 15:48 EST , Service support ,
[2020-02-10 15:46] LABS: Bedside Glucose 162 mg/dL (70-110)
[2020-02-10] MEDS: Cefazolin 1 GM/50 ML BAG IV (19:06)
[2020-02-10] MEDS: Ondansetron 4 MG/2 ML Vial IV (21:07)
[2020-02-10] MEDS: Senna/Docusate Sodium 1 Tablet 2 TABLET PO (21:57)
[2020-02-11 01:26] VITALS: BP 141/74; PULSE 90; RESP 17; TEMP 36.6; O2SAT 97
[2020-02-11] MEDS: Cefazolin 1 GM/50 ML BAG IV ×2 (02:58→11:41)
[2020-02-11 05:00] VITALS: BP 131/60; PULSE 88; RESP 18; TEMP 36.4; O2SAT 100
[2020-02-11 05:58] LABS: Hematocrit 40.6 % (37-47); Mean Corpuscular Hgb 28.1 pg (27.0-32.0); Mean Corpuscular Volume 87.7 fL (81-99); Mean Platelet Vol. 8.9 fl (6.2-12.0); Platelet Count 353 K/mm3 (150-450); RBC Distribution Width CV 12.7 % (11.6-14.6); RBC Distribution Width SD 40.3 fl (35.1-43.9); Red Blood Count 4.63 M/mm3 (4.2-5.4)
[2020-02-11 06:30] LABS: Anion Gap 7 (5-15); BUN 12 mg/dL (7-18); BUN/Creat Ratio 12.3 RATIO (10-20); Calcium,Total 8.9 mg/dL (8.5-10.1); Chloride 103 mmol/L (98-107); Creatinine, Serum 0.97 mg/dL (0.55-1.02); EST Glomerular Filtration Rate 61 mL/min (>60); Est Glom Filt Rate - Afr Amer 74 mL/min (>60); Estimated Creatinine Clearance 43.19 ml/min; Glucose 175 mg/dL (74-106); Potassium 3.9 mmol/L (3.5-5.1); Sodium Level 140 mmol/L (136-145)
[2020-02-11] MEDS: Acetaminophen 500 MG Tablet 1000 MG PO (06:34)
[2020-02-11] MEDS: APIXABAN 2.5 MG TABLET PO (06:34)
[2020-02-11 07:14] VITALS: BP 132/75; PULSE 93; RESP 16; TEMP 36.6; O2SAT 98
[2020-02-11] MEDS: Senna/Docusate Sodium 1 Tablet 2 TABLET PO (08:30)
[2020-02-11] MEDS: oxyCODONE 5 MG Tablet PO (08:30)
--- NOTE | 2020-02-11 09:57 | PN.ORTHO_ITS ---
Subjective: Patient seen and examined doing well no complaints able to ambulate with PT - Physical Exam Vitals/I&O's: Vital Signs Temp Pulse Resp BP Pulse Ox 97.8 F 93 16 132/75 H 98 02/11/20 07:14 02/11/20 07:14 02/11/20 07:14 02/11/20 07:14 02/11/20 07:14 Oxygen Flow Rate (L/min) 5 Oxygen Delivery Method Room Air Weight: 226 lb 13.69 oz Body Mass Index (BMI) 44.3 Finger Stick Blood Glucose 162 Intake and Output for Last 24 Hours 02/09/20 02/10/20 02/11/20 23:59 23:59 23:59 Intake Total 2271.83 / 2271.83 170 / 170 Output Total 600 / 600 500 / 500 Balance 1671.83 / 1671.83 -330 / -330 General: Alert, Oriented x3, Cooperative, No apparent distress Extremities: - - Dressing clean dry intact compartments soft neurovascular intact Microbiology Past 72 Hours 02/09/20 08:25 Interface Orders SARS-CoV-2 Antigen (Rapid) - Final Laboratory Results 02/10/20 10:39: POC Glucose 188 H 02/10/20 15:32: POC Glucose 162 H 02/11/20 05:26: WBC 24.0 H, RBC 4.63, Hgb 13.0, Hct 40.6, MCV 87.7, MCH 28.1, MCHC 32.0, RDW Std Deviation 40.3, RDW Coeff of Frank 12.7, Plt Count 353, MPV 8.9 02/11/20 05:26: Sodium 140, Potassium 3.9, Chloride 103, Carbon Dioxide 30.0, Anion Gap 7, BUN 12, Creatinine 0.97, Estim Creat Clear Calc 43.19, Est GFR (MDRD) Af Amer 74, Est GFR (MDRD) Non-Af 61, BUN/Creatinine Ratio 12.3, Glucose 175 H, Calcium 8.9 Current Medications Acetaminophen (Acetaminophen 500 Mg Tablet) 1,000 mg PO Q8 [facility] Last Admin: 02/11/20 06:34 Dose: 1,000 mg Documented by: Apixaban (Apixaban 2.5 Mg Tablet) 2.5 mg PO BID@0700,1900 [facility] Last Admin: 02/11/20 06:34 Dose: 2.5 mg Documented by: Hydromorphone HCl (Hydromorphone 0.5 Mg/0.5 Ml Syringe) 0.5 mg IV Q2H PRN PRN PRN Reason: Pain Score 6-10 Cefazolin Sodium () 1 gm in 50 mls @ 100 mls/hr IV Q8H [facility] Last Infusion: 02/11/20 03:42 Dose: Infused Documented by: Sodium Chloride () 250 mls @ 15 mls/hr IV .[id number] PRN PRN Reason: Saline Flush Sodium Chloride () 250 mls @ 15 mls/hr IV .[id number] PRN PRN Reason: Additional IVPB Infusion Insulin Human Lispro (Insulin Lispro 100 Unit/Ml Insuln.Pen) 1 - 6 unit SC Q4H PRN PRN; Protocol PRN Reason: BG>/= 180, SEE PROTOCOL Last Admin: 02/10/20 11:32 Dose: 1 u Documented by: Ketorolac Tromethamine (Ketorolac 15 Mg/Ml Vial) 15 mg IV Q6H PRN PRN PRN Reason: Pain Score 1-5 Stop: 02/12/20 15:06 Ondansetron HCl (Ondansetron 4 Mg/2 Ml Vial) 4 mg IV Q6H PRN PRN PRN Reason: NAUSEA Last Admin: 02/10/20 21:07 Dose: 4 mg Documented by: Oxycodone HCl (Oxycodone 5 Mg Tablet) 5 - 10 mg PO Q4H PRN PRN PRN Reason: Pain Score 4-10 Last Admin: 02/11/20 08:30 Dose: 5 mg Documented by: Senna/Docusate Sodium (Senna/Docusate Sodium 1 Tablet) 2 tablet PO BID SUMA Last Admin: 02/11/20 08:30 Dose: 2 tablet Documented by: Sodium Chloride (0.9% Nacl Peripheral Flush Adult/Peds) 5 - 15 ml IV UD PRN PRN Reason: SALINE FLUSH Sodium Chloride (0.9% Saline Lock 10 Ml Syringe) 10 - 40 ml IV UD PRN PRN Reason: SALINE FLUSH Medical Necessity - Tobacco Use Smoking Status: Never smoker Tobacco Use: Non-smoker Assessment/Plan All Active Problems (Last Reviewed 03/26/19 @ 09:59 by Mercy C Siders) History of ovarian cancer (Acute) Ventral incisional hernia without obstruction or gangrene (Acute) Gastroesophageal reflux disease (Acute) History of Chou's esophagus (Acute) Screening for intestinal cancer (Acute) Postop day #1 right revision unicompartmental to total knee arthroplasty Doing well PT OT weightbearing as tolerated SCDs Eliquis 2.5 mg twice daily for 2 weeks postop Dressing to be changed 72 hours postop prior to first shower then cleaned and shower with antibacterial soap and replace with ABD and thigh-high AMBERLY hose daily, Follow-up in office 2 weeks
--- NOTE | 2020-02-11 10:01 | DCINST_ITS ---
Discharge Diet: No Restrictions, 1999 Calorie Control Diet Weight Bearing Status: Weight bearing as tolerated Call your doctor if you observe: Shortness of breath, Chest pain Additional Instructions: Ice and elevate one week while not ambulating. Ambulation is encouraged. Weightbearing as tolerated. Use assistive devise for stability. Encourage FULL knee extension and flexion 1 time EVERY time you get up and down and MULTIPLE times per day. No showering 72 hours after surgery. Begin showering postop day #3. Remove the dressing prior to shower and gently wash with warm water and antibacterial soap then pat dry and place abdominal pad (or plain gauze) and AMBERLY hose over top. This is to be done daily. Do not submerge for 3 weeks. If not showering daily after the initial 72 hours then you must clean incision and change dressing daily. Do not allow animals near the incision area. Keep clean. Follow anticoagulation recommendations as prescribed. Do not take any NSAIDs while on blood thinner. Do not take any additional narcotic pain medication other than what was prescribed on you surgery day without discussing with physician. Start physical therapy. If you are not currently scheduled for physical therapy or you are unsure of appointment time please call office MANAS to arrange. Call Dr. Eric with any concerns. Allergies/Adverse Reactions: Allergies methylprednisolone sodium succinate [From Solu-Medrol] Adverse Reaction (Bhupendra ified 02/10/20 10:26) Other tachycardic with shortness of breath Medications to take at Discharge Calcium Carb/Vitamin D [Caltrate-600 With Vit D Tab] 1 tab PO DAILY@0800 07/01/13 Losartan/Hydrochlorothiazide [Hyzaar 100-25 Tablet] 1 tab PO DAILY 07/01/13 Rosuvastatin Calcium [Crestor] 5 mg PO QHS 07/01/13 buPROPion XL [Wellbutrin Xl] 150 mg PO DAILY 07/01/13 Cetirizine HCl [Zyrtec] 10 mg PO DAILY 11/27/14 Esomeprazole Mag Trihydrate [Nexium] 40 mg PO DAILY 11/27/14 multivitamin,gu-abrh-burryzbb 1 tab PO QDAY 03/04/17 levothyroxine 25 mcg tablet 25 mcg PO DAILY 01/24/19 Senna [Senokot] 1 tab PO DAILY 02/07/19 Acetaminophen [Tylenol Extra Strength] 1,000 mg PO Q6H PRN #100 tab 02/11/20 Apixaban [Eliquis] 2.5 mg PO BID #28 tab 02/11/20 Ondansetron HCl [Zofran] 4 mg PO Q6H PRN PRN 5 Days #15 tab 02/11/20 Oxycodone [Oxyir] 5 mg PO Q4H PRN PRN #60 tablet 02/11/20 The following prescriptions were given: Apixaban [Eliquis] 2.5 mg PO BID #28 tab Transmission Status: Pending to [facility] Oxycodone [Oxyir] 5 mg PO Q4H PRN PRN #60 tablet PRN Reason: Pain Score 6-10 Transmission Status: Sent to [facility] Acetaminophen [Tylenol Extra Strength] 1,000 mg PO Q6H PRN #100 tab Transmission Status: Pending to [facility] Ondansetron HCl [Zofran] 4 mg PO Q6H PRN PRN 5 Days #15 tab PRN Reason: Nausea Transmission Status: Pending to [facility] Primary Care Physician: Riri Aviles DO [Primary Care Provider] - Test Results: Test results from this visit will be discussed in further detail at your follow- up appointment, if applicable. Please Follow Up With: Mainor Eric DO When: 2weeks
--- NOTE | 2020-02-11 10:10 | CASEMGMT ---
ABNER CAST Face to Face with patient for initial transition planning/care coordination assessment. RN CM introduced self and role at [facility]. Patient sitting in chair, alert and oriented. Patient willing to participate in assessment and is able to answer all questions appropriately. Care providers, pharmacy, and demographics verified. Patient wishes to discharge home with outpatient therapy at [facility]. Patient states she has no further needs or concerns at this time. CM to follow for discharge planning needs that may arise. PCP: Traci Specialists: Jeaneth Monge Pharmacy: [facility] Retail Insurance: [facility] Prescription Benefit: yes Living Will/HPOA: yes, Ed Jeovanny LNOK: Living Arrangements: Patient lives with in 2 story home with bed and bath on first floor. 2 steps and railing to enter the home. Patient was independent at home prior to surgery Transportation: DME/HHC: Patient states she has shower chair, raised toilet, walker, grab bars. Patient denies previous HHC. Patient is scheduled for outpatient therapy at [facility] starting 02/13/20 Disposition Plan: Patient to discharge home with outpatient therapy, family support, and follow-up plans in place. Lakisha AYOUB, RN, CM
--- NOTE | 2020-02-11 11:07 | PHA.DC.MC ---
Pharmacy Service has performed discharge medication reconciliation and counseling for this patient. 1. ACETAMINOPHEN 1000MG PO Q6H PRN PAIN 2. APIXABAN 2.5MG PO BID X 14 DAYS 3. ONDANSETRON 4MG PO Q6H PRN NAUSEA 4. OXYCODONE 5-10MG PO Q4H PRN PAIN 6-10 The patient's discharge medication list was reviewed for discrepancies and discrepancies were resolved. Home Medications Calcium Carb/Vitamin D [Caltrate-600 With Vit D Tab] 1 tab PO DAILY@0800 07/01/13 Losartan/Hydrochlorothiazide [Hyzaar 100-25 Tablet] 1 tab PO DAILY 07/01/13 Rosuvastatin Calcium [Crestor] 5 mg PO QHS 07/01/13 buPROPion XL [Wellbutrin Xl] 150 mg PO DAILY 07/01/13 Cetirizine HCl [Zyrtec] 10 mg PO DAILY 11/27/14 Esomeprazole Mag Trihydrate [Nexium] 40 mg PO DAILY 11/27/14 multivitamin,ag-vosi-hunncqiq 1 tab PO QDAY 03/04/17 levothyroxine 25 mcg tablet 25 mcg PO DAILY 01/24/19 Senna [Senokot] 1 tab PO DAILY 02/07/19 Acetaminophen [Tylenol Extra Strength] 1,000 mg PO Q6H PRN #100 tab 02/11/20 Apixaban [Eliquis] 2.5 mg PO BID #28 tab 02/11/20 Ondansetron HCl [Zofran] 4 mg PO Q6H PRN PRN 5 Days #15 tab 02/11/20 Oxycodone [Oxyir] 5 mg PO Q4H PRN PRN #60 tab 02/11/20 The patient was counseled on the following discharge medications and changes in medications for homegoing were reviewed. The Reason for Use, instructions for use, and potential side effects were reviewed for all new medications. The patient's questions regarding all of their medications were answered. The patient was able to verbally demonstrate an understanding of their discharge medications.
[2020-02-11 13:01] VITALS: BP 156/88; PULSE 94; RESP 18; TEMP 36.8; O2SAT 99
== END 2020-02-11 13:45 | disposition home or self-care (01) | DRG 468 ==
LOC: ACINP 09:49 → MS3 18:15
PROVIDERS: Admitting Provider Orthopaedic Surgery; PCP Internal Medicine; Referring Provider Orthopaedic Surgery; Visit Provider Orthopaedic Surgery
PROC: 0SRC0JZ Replacement of Right Knee Joint with Synthetic Substitute, Open Approach (ICD-10-PCS; CPT 27447; principal; 2020-02-10 11:45)
DX: M17.11 Unilateral primary osteoarthritis, right knee (principal); Z20.828 Contact with and (suspected) exposure to other viral communicable diseases; E66.9 Obesity, unspecified; I10 Essential (primary) hypertension; K21.9 Gastro-esophageal reflux disease without esophagitis; M19.90 Unspecified osteoarthritis, unspecified site; E78.00 Pure hypercholesterolemia, unspecified; E06.9 Thyroiditis, unspecified; F32.9 Major depressive disorder, single episode, unspecified; Z78.0 Asymptomatic menopausal state; Z87.19 Personal history of other diseases of the digestive system; Z85.43 Personal history of malignant neoplasm of ovary
CPT/HCPCS: 73560; 80048; 82962; 85027; 87426; 93005; 97110; 97162; 97166; 97530; 97535; 99251; C1776; C9803; J7120; G0463; J0702; J2405; J3490

== ENCOUNTER → 2020-03-17 11:58 | Outpatient (CLI) | payer OTHER, SELFPAY ==
--- NOTE | 2020-03-17 12:00 | RAD_ITS ---
STUDY: X-RAY - RIGHT KNEE REASON FOR EXAM: Right knee swelling, right knee arthroplasty 5 weeks ago. TECHNIQUE: 4 view(s) of the knee. COMPARISON: Radiographs 02/10/2020. FINDINGS: There is a right total knee arthroplasty without evidence of complication. There is anterior soft tissue swelling. RAD/Knee 4 or More Views IMPRESSION: Uncomplicated right total knee arthroplasty. Anterior soft tissue swelling. Electronically Signed: Marco A Lilly MD at 15:01 EST Tel , Service support ,
== END ==
PROVIDERS: PCP Internal Medicine; Referring Provider Orthopaedic Surgery; Visit Provider Orthopaedic Surgery
DX: Z47.89 Encounter for other orthopedic aftercare (principal)
CPT/HCPCS: 73564

== ENCOUNTER → 2020-03-23 08:11 | Outpatient (CLI) | payer OTHER, SELFPAY ==
[2020-03-23 08:25] LABS: Mucous, Urine 0 SEEN /hpf (<or=2+)
[2020-03-23 08:34] LABS: Color, Urine Yellow (Yellow); Glucose, Dipstick Normal (Normal); Ketone-Dipstick Negative (Negative); Leukocyte Esterase-Dipstick 25 /ul (Negative); Nitrite-Dipstick Negative (Negative); Occult Blood-Urine 10 /ul (Negative); Protein-Dipstick Negative (Negative); Urine Bilirubin Dipstick Negative (Negative); Urine Clarity Sl. Cloudy (Clear); Urine Urobilinogen Normal (Normal)
[2020-03-23 08:35] LABS: Absolute Lymphocyte Count 1.32 X10^3/uL (0.83-4.51); Absolute Neutrophil Count 6.7 X10^3/uL (2.0-7.7); Basophil# 0.09 X10^3/uL; Eosinophil# 0.26 X10^3/uL; Eosinophils% 2.9 % (0-5); Hematocrit 39.5 % (37-47); Hemoglobin 12.6 g/dL (12.0-15.0); Lymphocyte # 1.32 X10^3/ul (4.0); Lymphocyte % 14.7 % (19-41); Mean Corp Hgb Conc 31.9 g/dL (32-36); Mean Corpuscular Hgb 27.9 pg (27.0-32.0); Mean Corpuscular Volume 87.4 fL (81-99); Mean Platelet Vol. 8.6 fl (6.2-12.0); Monocyte# 0.55 X10^3/uL; Monocyte% 6.1 % (0-10); NRBC Flagged by Analyzer 0 % (0-5); Neutrophil # 6.73 X10^3/uL (2.7-7.7); Neutrophil % 74.9 % (47-70); Platelet Count 338 K/mm3 (150-450); RBC Distribution Width CV 12.8 % (11.6-14.6); RBC Distribution Width SD 40.2 fl (35.1-43.9); Red Blood Count 4.52 M/mm3 (4.2-5.4)
[2020-03-23 08:40] LABS: Bacteria 1+ /hpf (None Seen); Hyaline Cast 0-5 SEEN /lpf (0-5); Red Blood Cells-Urine 0-5 SEEN /hpf (0-5); Squamous Epithelial Cells - UA 0-5 SEEN /hpf (5-10); White Blood Cells 0-5 SEEN /hpf (0-5)
[2020-03-23 08:46] LABS: Hemoglobin A1c 5.4 % (3.8-5.6)
[2020-03-23 08:52] LABS: ALB/GLOB Ratio 1.1 RATIO (0.9-2.4); AST(SGOT) 16 U/L (15-37); Alanine Aminotransfer ALT/SGPT 20 U/L (13-56); Albumin, Serum 3.7 g/dL (3.2-5.0); Alkaline Phosphatase 97 U/L (45-117); Anion Gap 5 (5-15); BUN 14 mg/dL (7-18); Calcium,Total 9.7 mg/dL (8.5-10.1); Chloride 101 mmol/L (98-107); Cholesterol 181 mg/dL (200); EST Glomerular Filtration Rate 90 mL/min (>60); Est Glom Filt Rate - Afr Amer 109 mL/min (>60); Globulin 3.5 g/dL (2.2-4.2); Glucose 114 mg/dL (74-106); High Density Lipoprotein 48 mg/dL; Potassium 3.9 mmol/L (3.5-5.1); Protein, Total 7.2 g/dL (6.4-8.2); Sodium Level 139 mmol/L (136-145); Thyroid Stim Hormone (TSH) 4.66 uIU/mL (0.358-3.74); Triglycerides 192 mg/dL; Very Low Density Lipoprotein 38 mg/dL (5-40)
[2020-03-23 08:54] LABS: Microalbumin,Random Urine 13.8 mg/L (NO RANGE EST.); Microalbumin:Creatinine Ratio 7.8 mg/g CRE (<30 mg/g CRE)
== END ==
PROVIDERS: PCP Internal Medicine; Referring Provider Internal Medicine; Visit Provider Internal Medicine
DX: R73.02 Impaired glucose tolerance (oral) (principal); E78.49 Other hyperlipidemia; E03.9 Hypothyroidism, unspecified
CPT/HCPCS: 36415; 80053; 80061; 81001; 82043; 82570; 83036; 84443; 85025

== ENCOUNTER 2020-04-09 15:00 | Outpatient (RCR) | payer OTHER, SELFPAY ==
[2020-01-05 10:18] VITALS: BMI 39.6
[2020-02-10 17:44] VITALS: BMI 44.3
--- NOTE | 2020-02-13 11:59 | HP.PTEVAL ---
Patient's Visit Information FRANCES PARHAM is a 64 year old F referred to Physical Therapy by Dr. Mainor Eric DO with a diagnosis of R TKA. Date of Evaluation: 02/13/20 Physical Therapist: Yadiel Castañeda DPT - Visit Plan Frequency: 3x /Week Duration: 4-6 Weeks Plan: Start with ROM, edema control, and isometrics. With focus on gaining ROM to 0-0-120deg. Then progress isokinetic strengthening as tolerated, progressing functional mobility as tolerated. Progress gait away from AD as tolerated. - Subjective Pt. is here today for her initial evaluation with diagnosis of R TKA. DOS 02/10/20. pt. reports no N/T, no chest pain, not drainage, no blured vision or calf pain. 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 Pt. works 4 different 9 hours shifts a week. Pt. reports overall doing well. SHe has been doing her HEP as prescribed by the hospital PTs. Pt. does notice having increased stiffness with sustained positoning, which I told her is normal. Pt. is using her FWW as presribed. She did take her bandaging off and was able to shower without issues. Pt. is hopeful to incerase her ROM, decrease her pain and get back to working without limitations. - Pain R knee Pain Intensity (Out of 10): 2 Pain Intensity Range: 0, 4 - Objective POSTURE: Pt. has good posture in stance, slight loss of TKE, normal wt shifting. Does use FWW for stability, but is able to stand without. PALPATION: Pt. has negative homans sign. Pt. Has normal healing incision, no signs of infection. NEURO: pt. has normal sensation, normal DTR of B achilles. ROM: R knee 0-5-93deg, PROM 0-2-100deg. Pt. has normal HS length. MMT: Pt. has good quad set, but unble to complete SLR. MMT with dynamometer. knee- flexion 8.1#, ext 4.4#. GAIT: Pt. ambualtes with FWW with decent pattern. Pt. has good heel strike with initial contact, lacks knee flexion during swing phase. TUG 17.2sec. - Goals Goal 1:: LTG: Pt. to be I with HEP. Goal Time Frame: 4-6 Weeks Goal 2:: STG: Pt. to have increased R knee ROM to 0-0-110deg. Goal Time Frame: 2 Weeks Goal 3:: LTG: pt. to have increased R knee AROM to 0-0-120deg. Goal Time Frame: 4-6 Weeks Goal 4:: LTG: Pt. to ambulate with out AD unlimited distances without increase in symptoms. Goal Time Frame: 4-6 Weeks Goal 5:: LTG: pt. to negotiate 1 flight of stairs without increase in symptoms with reciprocal pattern. Goal Time Frame: 4-6 Weeks Goal 6:: LTG: pt. to have increased RLE strength to 5/5 throughout without increase in symptoms. Goal Time Frame: 4-6 Weeks - Rehabilitation Potential Physical Therapy Diagnosis: Pt. has signs and symptoms consistent with R TKA. Pt. has subsequent hypombility, weakness, difficulty with gait and increased edema. Pt. would benefit from PT to work on above limitation progressing back to all work and recreational activities as tolerated. Rehabilitation Potential: Excellent - Anticipated Interventions Patient/Client Instruction: Educate patient on: Condition, Plan of Care, Risk Factors, Benefits of Fitness Program For the Purpose of:: To facilitate caregiver knowledge, To improve self management, To prevent re-injury, To improve ability to perform tasks related to life management, To improve tolerance to ADL's Therapeutic Exercise to Include: Strength training, Power training, Balance training, Body mechanics, Postural training, Flexibilty training, Gait and locomotor training, Passive ROM, Active ROM For the Purpose of:: To decrease pain, To decrease swelling/inflammation, To increase ROM, To improve nutrient delivery to tissue, To increase oxygenation perfusion, To improve muscle performance and motor function, To improve gait and locomotor functions, To improve health of tissue, To decrease soft tissue restriction, To increase flexibility/ROM, To improve endurance, To improve balance, To improve safety with gait Manual Therapy Techniques to Include: Passive ROM, Soft tissue mobilization For the Purpose of:: To decrease pain, To decrease swelling/inflammation, To increase ROM, To improve nutrient delivery to tissue, To increase oxygenation perfusion, To improve muscle performance and motor function Cryotherapy (ice pack, ice massage): Yes Vasopneumatic device: Yes For the Purpose of:: To decrease pain, To decrease swelling/inflammation, To increase ROM, To improve nutrient delivery to tissue, To increase oxygenation perfusion, To improve muscle performance and motor function, To improve health of tissue, To decrease soft tissue restriction Thank you for the opportunity to evaluate your patient. For Medicare and Medicare HMO plans, please review the plan of care and approve it. It will need to be FAXED BACK to us at [phone] for Medicare purposes. For Medicare only, by signing this I certify the plan of care. Please let me know if there are questions or concerns regarding this plan of care. Physician Signature: Date:
== END 2020-04-09 19:00 | disposition home or self-care (01) ==
LOC: PT 15:00
PROVIDERS: PCP Internal Medicine; Referring Provider Orthopaedic Surgery; Visit Provider Orthopaedic Surgery
DX: Z47.1 Aftercare following joint replacement surgery (principal); Z96.651 Presence of right artificial knee joint
CPT/HCPCS: 97016; 97110; 97140; 97161

== ENCOUNTER → 2020-04-28 09:45 | Outpatient (CLI) | payer OTHER, SELFPAY ==
--- NOTE | 2020-04-28 09:47 | RAD_ITS ---
STUDY: X-RAY - PELVIS AND RIGHT HIP REASON FOR EXAM: Chronic right hip pain with recent worsening. TECHNIQUE: 2 views of the pelvis and hip. COMPARISON: Radiographs 05/10/2015. FINDINGS: There are pelvic phleboliths. Normal bilateral iliac wings, sacroiliac joints and visualized sacrum. Normal bilateral superior and inferior pubic rami. Normal pubic symphysis. Normal bilateral ischial tuberosities. Normal visualized femoral head. Normal acetabulum. There are small marginal osteophytes of the right femoral head and moderately severe joint space narrowing of the superior medial right hip joint, increased since the prior study. RAD/HIP, UNI W/ Pelvis 2-3 Views IMPRESSION: Right hip arthrosis. Electronically Signed: Marco A Lilly MD at 14:11 EDT Tel , Service support ,
== END ==
PROVIDERS: PCP Internal Medicine; Referring Provider Orthopaedic Surgery; Visit Provider Orthopaedic Surgery
DX: M25.551 Pain in right hip (principal)
CPT/HCPCS: 73502

== ENCOUNTER → 2020-06-22 14:16 | Outpatient (CLI) | payer OTHER, SELFPAY ==
[2020-03-10 09:40] VITALS: BMI 39.6
--- NOTE | 2020-06-22 14:19 | BI_ITS ---
MAMMOGRAPHY - BILATERAL SCREENING 3-D TOMOSYNTHESIS REASON FOR EXAM: Female, 65 years old. Routine screening PERTINENT HISTORY: No significant family history. TECHNIQUE: 2-D mammograms and 3-D Tomosynthesis of the breast (s) were performed. CAD was performed. COMPARISON: 03/25/19 FINDINGS: The breast composition is almost entirely fat. Scattered benign calcifications are seen. No dense spiculated masses or suspicious microcalcifications are identified. No architectural distortion is identified. There is no skin thickening or retraction. There has been no significant change since the prior study. BI/SCRN MAMM (CAD)W/SHAMA BILAT IMPRESSION: No mammographic signs of malignancy. Routine yearly mammograms recommended. ASSESSMENT CATEGORY: BIRADS Category 1: Negative. A letter regarding these results will be sent to the patient by the facility within 30 days. FOLLOW UP RECOMMENDATION: Yearly follow up mammogram recommended. (A) Approximately 10% of breast cancers are not detected by mammography. A normal mammogram should not delay biopsy of a clinically suspicious abnormality. Electronically Signed: Mike Simmons MD at 15:49 EDT , Service support ,
--- NOTE | 2020-06-22 14:25 | BD_ITS ---
STUDY: DUAL ENERGY X-RAY ABSORPTIOMETRY / DXA REASON FOR EXAM: Female, 65 years old. Postmenopausal osteoporosis screening. TECHNIQUE: Bone Mineral Density (BMD) measurements of lumbar spine and bilateral hips were obtained. COMPARISON: 07/04/2017, 03/12/2008. FINDINGS: Lumbar Spine (L1-L4): g/cm2 (1.552) / T-score (3.1) / Z-score (4.5) BMD has 2.1% since the 2017 study. Left Femur Total: g/cm2 (1.154) / T-score (1.2) / Z-score (2.3) Left Femoral Neck: g/cm2 (1.016) / T-score (-0.2) / Z-score (1.2) Right Femur Total: g/cm2 (1.016) / T-score (-0.2) / Z-score (1.2) Right Femoral Neck: g/cm2 (1.176) / T-score (1.3) / Z-score (2.4) The T-Scores on the most recent prior examination were: Lumbar Spine (L1-L4): improvement Left Femoral Neck: Decreased1.6% Right Femoral Neck: DECREASED 4.5%. BD/Dexa Bone Density Study IMPRESSION: The patient is considered normal as outlined below according to World Nils Organization (WHO) criteria with a low fracture risk. There has been worsening since the previous examination. Reference Information: The T-score is the number of standard deviations above or below the standard which is normal for young adults at their peak bone mineral density. The World Health Organization (WHO) interprets the T-scores as follows: Above -1 Normal bone density Between -1 and -2.5 Osteopenia Equal to / or below -2.5 Osteoporosis As a practical clinical guideline, osteopenia may be graded as follows: Mild -1 through -1.5 Moderate -1.6 through -2.0 Severe -2.1 through -2.4 The Z-score is the number of standard deviations above or below age-matched controls. A Z-score of less than -1.5 would be considered abnormal. References: 1. NIH Osteoporosis and Related Bone Diseases http://www.osteo.org 2. International Society for Clinical Densitometry http://www.iscd.org 3. National Osteoporosis Foundation http://www.nof.org Electronically Signed: Basim Sharma MD at 12:36 EDT , Service support ,
== END ==
PROVIDERS: PCP Internal Medicine; Referring Provider Internal Medicine; Visit Provider Internal Medicine
DX: Z12.31 Encounter for screening mammogram for malignant neoplasm of breast (principal); Z78.0 Asymptomatic menopausal state
CPT/HCPCS: 77063; 77067; 77080

== ENCOUNTER → 2020-07-06 09:08 | Outpatient (CLI) | payer OTHER, SELFPAY ==
[2020-07-06 09:52] LABS: Thyroid Stim Hormone (TSH) 3.71 uIU/mL (0.358-3.74)
== END ==
PROVIDERS: PCP Internal Medicine; Referring Provider Internal Medicine; Visit Provider Internal Medicine
DX: R79.89 Other specified abnormal findings of blood chemistry (principal)
CPT/HCPCS: 36415; 84443

== ENCOUNTER → 2020-09-08 07:55 | Outpatient (CLI) | payer OTHER, SELFPAY ==
[2020-09-08 08:14] LABS: Mucous, Urine 0 SEEN /hpf (<or=2+); Red Blood Cells-Urine 0 SEEN /hpf (0-5); Squamous Epithelial Cells - UA 0 SEEN /hpf (5-10); White Blood Cells 0 SEEN /hpf (0-5)
[2020-09-08 08:14] LABS: Absolute Lymphocyte Count 1.21 X10^3/uL (0.83-4.51); Absolute Neutrophil Count 6.5 X10^3/uL (2.0-7.7); Basophil# 0.07 X10^3/uL; Basophil% 0.8 % (0-1); Eosinophil# 0.15 X10^3/uL; Eosinophils% 1.8 % (0-5); Hematocrit 40.7 % (37-47); Hemoglobin 13.4 g/dL (12.0-15.0); Lymphocyte # 1.21 X10^3/ul (0.83-4.51); Lymphocyte % 14.2 % (19-41); Mean Corp Hgb Conc 32.9 g/dL (32-36); Mean Corpuscular Hgb 28.2 pg (27.0-32.0); Mean Corpuscular Volume 85.5 fL (81-99); Mean Platelet Vol. 8.8 fl (6.2-12.0); NRBC Flagged by Analyzer 0 % (0-5); Neutrophil # 6.49 X10^3/uL (2.7-7.7); Platelet Count 318 K/mm3 (150-450); RBC Distribution Width CV 12.7 % (11.6-14.6); RBC Distribution Width SD 39.4 fl (35.1-43.9); Red Blood Count 4.76 M/mm3 (4.2-5.4); White Blood Count 8.5 K/mm3 (4.4-11.0)
[2020-09-08 08:16] LABS: Color, Urine Yellow (Yellow); Glucose, Dipstick Normal (Normal); Ketone-Dipstick Negative (Negative); Leukocyte Esterase-Dipstick Negative /ul (Negative); Nitrite-Dipstick Negative (Negative); Occult Blood-Urine Negative /ul (Negative); Protein-Dipstick Negative (Negative); Urine Bilirubin Dipstick Negative (Negative); Urine Clarity Sl. Cloudy (Clear); Urine Urobilinogen Normal (Normal)
[2020-09-08 08:26] LABS: Bacteria RARE /hpf (None Seen)
[2020-09-08 08:37] LABS: ALB/GLOB Ratio 1.1 RATIO (0.9-2.4); AST(SGOT) 17 U/L (15-37); Alanine Aminotransfer ALT/SGPT 27 U/L (13-56); Albumin, Serum 3.8 g/dL (3.2-5.0); Alkaline Phosphatase 84 U/L (45-117); Anion Gap 6 (5-15); BUN 9 mg/dL (7-18); BUN/Creat Ratio 13.8 RATIO (10-20); Calcium,Total 9.5 mg/dL (8.5-10.1); Chloride 102 mmol/L (98-107); Cholesterol 163 mg/dL (200); Creatinine, Serum 0.65 mg/dL (0.55-1.02); EST Glomerular Filtration Rate 97 mL/min (>60); Est Glom Filt Rate - Afr Amer 118 mL/min (>60); Globulin 3.6 g/dL (2.2-4.2); Glucose 125 mg/dL (74-106); High Density Lipoprotein 43 mg/dL; Potassium 3.6 mmol/L (3.5-5.1); Protein, Total 7.4 g/dL (6.4-8.2); Sodium Level 138 mmol/L (136-145); Thyroid Stim Hormone (TSH) 2.98 uIU/mL (0.358-3.74); Triglycerides 171 mg/dL; Very Low Density Lipoprotein 34 mg/dL (5-40)
[2020-09-08 08:40] LABS: Microalbumin,Random Urine < 5.0 mg/L (NO RANGE EST.)
== END ==
PROVIDERS: PCP Internal Medicine; Referring Provider Internal Medicine; Visit Provider Internal Medicine
DX: R73.02 Impaired glucose tolerance (oral) (principal)
CPT/HCPCS: 36415; 80053; 80061; 81001; 82043; 82570; 84443; 85025

== ENCOUNTER → 2020-10-19 13:49 | Outpatient (CLI) | payer OTHER, SELFPAY ==
--- NOTE | 2020-10-19 14:45 | RAD_ITS ---
STUDY: X-RAY - RIGHT KNEE REASON FOR EXAM: Female, 65 years old. Pain. TECHNIQUE: 4 view(s) of the knee. COMPARISON: 03/17/2020. FINDINGS: Uncomplicated appearing right knee arthroplasty. Surgical hardware intact/well aligned. No acute fracture line. No acute dislocation. No acute bone destruction. Mild/moderate soft tissue swelling. Moderate volume joint effusion. RAD/Knee 4 or More Views IMPRESSION: Uncomplicated appearing right knee arthroplasty Soft tissue swelling with joint effusion Electronically Signed: Conor Tristan DO at 8:13 EDT Tel , Service support ,
== END ==
PROVIDERS: PCP Internal Medicine
DX: M25.561 Pain in right knee (principal); Z96.659 Presence of unspecified artificial knee joint
CPT/HCPCS: 73564

== ENCOUNTER → 2020-10-20 09:31 | Outpatient (CLI) | payer OTHER, SELFPAY ==
--- NOTE | 2020-10-20 09:33 | VDLE_ITS ---
Reason For Study: Swelling RIGHT LEFT GSV is normal. CFV is compressible, spontaneous, phasic, CFV is compressible, spontaneous, phasic, competent, and demonstrates normal competent and demonstrates normal augmentation. augmentation. FV is compressible, spontaneous, phasic, competent and demonstrates normal augmentation. POP V is compressible, spontaneous, phasic, competent and demonstrates normal augmentation. T/P Trunk is compressible. PTV is compressible. RT PerV is compressible. Hypoechoic, non vascular structure noted Rt Pop Fossa extending into the proximal calf measuring 1.39cm x 3.82cm Difficult to visualize prox calf veins due to patient body habitus. Procedure This is a venous duplex using B-mode, color flow and spectral Doppler. Exam performed in department. A preliminary report was called and/or faxed to Ximena CHARLES. VL/Venous Duplex US, Unilateral Interpretation Summary There is no evidence of right lower extremity deep vein thrombosis. Right great saphenous vein appears patent and compressible segmentally. Hypoechoic right popliteal space 1 .39 x 3.82 cm nonvascular structure suspicious for possible Olmos's cyst with hemorrhage. Cli nical correlation would be appropriate. Normal flow patterns left common femoral vein Ordering Physician: Ximena Gordon Referring Physician: Riri Aviles Performed By: Venessa Sykes, RDCS, RVT
== END ==
PROVIDERS: PCP Internal Medicine
DX: M79.89 Other specified soft tissue disorders (principal); M79.669 Pain in unspecified lower leg
CPT/HCPCS: 93971

== ENCOUNTER 2021-04-11 09:02 | Outpatient (CLI) | payer OTHER, SELFPAY ==
[2021-04-11 09:37] LABS: Absolute Lymphocyte Count 1.32 X10^3/uL (0.83-4.51); Absolute Neutrophil Count 7.5 X10^3/uL (2.0-7.7); Basophil# 0.08 X10^3/uL; Basophil% 0.8 % (0-1); Eosinophil# 0.18 X10^3/uL; Eosinophils% 1.8 % (0-5); Hematocrit 40.4 % (37-47); Hemoglobin 13.5 g/dL (12.0-15.0); Lymphocyte # 1.32 X10^3/ul (0.83-4.51); Lymphocyte % 13.6 % (19-41); Mean Corp Hgb Conc 33.4 g/dL (32-36); Mean Corpuscular Hgb 28.4 pg (27.0-32.0); Mean Corpuscular Volume 85.1 fL (81-99); Mean Platelet Vol. 8.7 fl (6.2-12.0); Monocyte# 0.63 X10^3/uL; Monocyte% 6.5 % (0-10); NRBC Flagged by Analyzer 0 % (0-5); Neutrophil # 7.49 X10^3/uL (2.7-7.7); Neutrophil % 76.9 % (47-70); Platelet Count 307 K/mm3 (150-450); RBC Distribution Width CV 12.8 % (11.6-14.6); RBC Distribution Width SD 39.5 fl (35.1-43.9); Red Blood Count 4.75 M/mm3 (4.2-5.4); White Blood Count 9.7 K/mm3 (4.4-11.0)
[2021-04-11 09:56] LABS: Hemoglobin A1c 6.2 % (3.8-5.6)
[2021-04-11 10:22] LABS: AST(SGOT) 15 U/L (15-37); Alanine Aminotransfer ALT/SGPT 25 U/L (13-56); Albumin, Serum 3.6 g/dL (3.2-5.0); Alkaline Phosphatase 71 U/L (45-117); Anion Gap 6 (5-15); BUN 14 mg/dL (7-18); BUN/Creat Ratio 20.5 RATIO (10-20); Calcium,Total 9.5 mg/dL (8.5-10.1); Chloride 102 mmol/L (98-107); Cholesterol 142 mg/dL (200); Creatinine, Serum 0.68 mg/dL (0.55-1.02); EST Glomerular Filtration Rate 92 mL/min (>60); Est Glom Filt Rate - Afr Amer 112 mL/min (>60); Globulin 3.5 g/dL (2.2-4.2); Glucose 121 mg/dL (74-106); High Density Lipoprotein 40 mg/dL; Potassium 3.7 mmol/L (3.5-5.1); Protein, Total 7.1 g/dL (6.4-8.2); Sodium Level 138 mmol/L (136-145); Thyroid Stim Hormone (TSH) 2.28 uIU/mL (0.358-3.74); Triglycerides 153 mg/dL; Very Low Density Lipoprotein 31 mg/dL (5-40)
[2021-04-11 10:48] LABS: Microalbumin,Random Urine < 5.0 mg/L (NO RANGE EST.)
== END 2021-04-11 23:59 | disposition home or self-care (01) ==
LOC: PAVLAB 09:03
PROVIDERS: PCP Internal Medicine; Referring Provider Internal Medicine; Visit Provider Internal Medicine
DX: E11.9 Type 2 diabetes mellitus without complications (principal); E03.9 Hypothyroidism, unspecified
CPT/HCPCS: 36415; 80053; 80061; 82043; 82570; 83036; 84443; 85025

== ENCOUNTER 2021-04-21 15:54 | Outpatient (CLI) | payer OTHER, SELFPAY ==
--- NOTE | 2021-04-21 15:56 | RAD_ITS ---
STUDY: X-RAY - RIGHT KNEE REASON FOR EXAM: Female, 66 years old. pain TECHNIQUE: 4 view(s) of the knee. COMPARISON: None. FINDINGS: Normal visualized distal femur. Lucent defects of the mid tibia likely prior surgical screw tracks. Normal proximal tibiofibular articulation. Knee replacement is in radiographic alignment. No joint effusion. The soft tissue structures are unremarkable. RAD/Knee 4 or More Views IMPRESSION: Radiographic alignment of right knee replacement. No demonstrated fracture. Electronically Signed: Adrian Cano MD ([place]) at 16:35 EDT ,
--- NOTE | 2021-04-21 15:56 | RAD_ITS ---
STUDY: X-RAY - LEFT KNEE REASON FOR EXAM: Female, 66 years old. pain TECHNIQUE: 4 view(s) of the knee. COMPARISON: None. FINDINGS: Normal visualized distal femur. Normal visualized proximal tibia and fibula. Normal proximal tibiofibular articulation. Knee replacement is in radiographic alignment. No joint effusion. The soft tissue structures are unremarkable. RAD/Knee 4 or More Views IMPRESSION: Radiographic alignment of left knee replacement. No demonstrated fracture. Electronically Signed: Adrian Cano MD ([place]) at 16:35 EDT ,
== END 2021-04-21 23:59 | disposition home or self-care (01) ==
LOC: MTRAD 15:56
PROVIDERS: PCP Internal Medicine; Referring Provider Orthopaedic Surgery; Visit Provider Orthopaedic Surgery
DX: M25.561 Pain in right knee (principal); M25.562 Pain in left knee
CPT/HCPCS: 73564

== ENCOUNTER 2021-05-24 08:23 | Outpatient (CLI) | payer OTHER, SELFPAY ==
[2021-05-24 09:03] LABS: AST(SGOT) 19 U/L (15-37); Alanine Aminotransfer ALT/SGPT 27 U/L (13-56); Albumin, Serum 3.8 g/dL (3.2-5.0); Alkaline Phosphatase 77 U/L (45-117); Globulin 3.5 g/dL (2.2-4.2); Protein, Total 7.3 g/dL (6.4-8.2)
== END 2021-05-24 23:59 | disposition home or self-care (01) ==
LOC: PAVLAB 08:24
PROVIDERS: PCP Internal Medicine; Referring Provider Internal Medicine; Visit Provider Internal Medicine
DX: E11.9 Type 2 diabetes mellitus without complications (principal); Z51.81 Encounter for therapeutic drug level monitoring
CPT/HCPCS: 36415; 80076; 83036

== ENCOUNTER → 2021-07-14 | Outpatient (CLI) | payer OTHER, SELFPAY ==
[2021-07-14 09:53] LABS: AST(SGOT) 13 U/L (15-37); Alanine Aminotransfer ALT/SGPT 24 U/L (13-56); Albumin, Serum 3.8 g/dL (3.2-5.0); Alkaline Phosphatase 74 U/L (45-117); Bilirubin, Direct 0.11 mg/dL (0.00-0.30); Globulin 3.2 g/dL (2.2-4.2)
[2021-07-14 09:54] LABS: Hemoglobin A1c 6.3 % (3.8-5.6)
== END | disposition home or self-care (01) ==
LOC: PAVLAB 09:17
PROVIDERS: PCP Internal Medicine; Referring Provider Internal Medicine; Visit Provider Internal Medicine
DX: E11.9 Type 2 diabetes mellitus without complications (principal); Z51.81 Encounter for therapeutic drug level monitoring
CPT/HCPCS: 36415; 80076; 83036

== ENCOUNTER → 2021-11-03 | Outpatient (CLI) | payer OTHER, SELFPAY ==
[2021-11-03 08:05] LABS: Mucous, Urine 0 SEEN /hpf (<or=2+)
[2021-11-03 08:07] LABS: Color, Urine Yellow (Yellow); Glucose, Dipstick Normal (Normal); Ketone-Dipstick Negative (Negative); Leukocyte Esterase-Dipstick 25 /ul (Negative); Nitrite-Dipstick Negative (Negative); Occult Blood-Urine 10 /ul (Negative); Protein-Dipstick Negative (Negative); Urine Bilirubin Dipstick Negative (Negative); Urine Clarity Sl. Cloudy (Clear); Urine Urobilinogen Normal (Normal)
[2021-11-03 08:12] LABS: Absolute Neutrophil Count 7.1 X10^3/uL (2.0-7.7); Eosinophil# 0.17 X10^3/uL; Eosinophils% 1.7 % (0-5); Hematocrit 42.5 % (37-47); Lymphocyte % 18.2 % (19-41); Mean Corp Hgb Conc 32.9 g/dL (32-36); Mean Corpuscular Hgb 28.3 pg (27.0-32.0); Mean Platelet Vol. 8.8 fl (6.2-12.0); Monocyte# 0.68 X10^3/uL; Monocyte% 6.9 % (0-10); NRBC Flagged by Analyzer 0 % (0-5); Neutrophil # 7.11 X10^3/uL (2.7-7.7); Neutrophil % 71.8 % (47-70); Platelet Count 311 K/mm3 (150-450); RBC Distribution Width CV 12.5 % (11.6-14.6); RBC Distribution Width SD 38.6 fl (35.1-43.9); Red Blood Count 4.94 M/mm3 (4.2-5.4); White Blood Count 9.9 K/mm3 (4.4-11.0)
[2021-11-03 08:16] LABS: Bacteria RARE /hpf (None Seen); Red Blood Cells-Urine 0-5 SEEN /hpf (0-5); Squamous Epithelial Cells - UA 0-5 SEEN /hpf (5-10); White Blood Cells 0-5 SEEN /hpf (0-5)
[2021-11-03 08:31] LABS: Microalbumin,Random Urine 5.9 mg/L (NO RANGE EST.); Microalbumin:Creatinine Ratio 6.7 mg/g CRE (<30 mg/g CRE)
[2021-11-03 09:04] LABS: ALB/GLOB Ratio 1.1 RATIO (0.9-2.4); AST(SGOT) 15 U/L (15-37); Alanine Aminotransfer ALT/SGPT 25 U/L (13-56); Albumin, Serum 3.7 g/dL (3.2-5.0); Alkaline Phosphatase 74 U/L (45-117); Anion Gap 8 (5-15); BUN 9 mg/dL (7-18); BUN/Creat Ratio 13.7 RATIO (10-20); Chloride 103 mmol/L (98-107); Cholesterol 153 mg/dL (200); Creatinine, Serum 0.66 mg/dL (0.55-1.02); EST Glomerular Filtration Rate 96 mL/min (>60); Est Glom Filt Rate - Afr Amer 117 mL/min (>60); Globulin 3.5 g/dL (2.2-4.2); Glucose 115 mg/dL (74-106); High Density Lipoprotein 44 mg/dL; Potassium 3.9 mmol/L (3.5-5.1); Protein, Total 7.2 g/dL (6.4-8.2); Sodium Level 140 mmol/L (136-145); Thyroid Stim Hormone (TSH) 3.95 uIU/mL (0.358-3.74); Triglycerides 157 mg/dL; Very Low Density Lipoprotein 31 mg/dL (5-40)
[2021-11-03 09:41] LABS: Hemoglobin A1c 6.3 % (3.8-5.6)
== END | disposition home or self-care (01) ==
LOC: PAVLAB 07:50
PROVIDERS: PCP Internal Medicine; Referring Provider Internal Medicine; Visit Provider Internal Medicine
DX: E03.9 Hypothyroidism, unspecified (principal); E11.9 Type 2 diabetes mellitus without complications; I10 Essential (primary) hypertension; E78.49 Other hyperlipidemia
CPT/HCPCS: 36415; 80053; 80061; 81001; 82043; 82570; 83036; 84443; 85025

== ENCOUNTER → 2021-11-21 | Outpatient (CLI) | payer OTHER, SELFPAY ==
--- NOTE | 2021-11-21 15:39 | BI_ITS ---
MAMMOGRAPHY - BILATERAL SCREENING REASON FOR EXAM: Female, 66 years old. Routine annual screening examination. PERTINENT HISTORY: Non-contributory. TECHNIQUE: Digital bilateral breast rd (3D mammographic acquisition) in the CC and MLO projections. 2-D mediolateral oblique (MLO) and craniocaudad (CC) views of both breasts were obtained. CAD: Full Field Digital Mammography with Computer Added Detection was performed. COMPARISON: Comparison is made with prior examination dated 06/22/2020 and 03/25/2019 FINDINGS: Breast Composition: The breasts are almost entirely fatty. There are no dominant masses or suspicious calcifications. Stable 4.6 mm well-defined nodule in the deep central lateral aspect of the right breast. Stable benign-appearing bilateral axillary lymph nodes. No other significant abnormalities are identified. There has been no significant change since the prior study. BI/SCREENING MAMM (CAD), BILAT IMPRESSION: Stable bilateral screening mammogram. Yearly follow-up mammogram recommended. (A) ASSESSMENT CATEGORY: BIRADS Category 2: Benign. A letter regarding these results will be sent to the patient by the facility within 30 days. Approximately 10% of breast cancers are not detected by mammography. A normal mammogram should not delay biopsy of a clinically suspicious abnormality. [id number] Electronically Signed: Basim Sharma MD at 8:52 EDT ,
== END | disposition home or self-care (01) ==
LOC: OPBI 15:38
PROVIDERS: PCP Internal Medicine; Visit Provider Internal Medicine
DX: Z12.31 Encounter for screening mammogram for malignant neoplasm of breast (principal)
CPT/HCPCS: 77067

== ENCOUNTER 2022-01-03 08:41 | Outpatient (CLI) | payer OTHER, SELFPAY ==
[2022-01-03 09:14] LABS: Erythrocyte Sedimentation Rate 18 mm/hr (0-30)
[2022-01-03 09:34] LABS: CRP 6.51 mg/L (0.0-3.0); Rheumatoid Factor < 10.0 IU/mL (<15); Thyroid Stim Hormone (TSH) 3.88 uIU/mL (0.358-3.74)
[2022-01-03 10:07] LABS: Hepatitis C Antibody Non-Reactive (Nonreactive); Vitamin D,25 Hydroxy 41.8 ng/mL
[2022-01-04 16:23] LABS: ANTINUCLEAR ANTIBODIES DIRECT Negative (Negative)
[2022-01-05 14:38] LABS: AFP, Tumor Marker 1.8 ng/mL (0.0-9.2); CCP IgG Antibodies 3 units (0-19)
== END 2022-01-03 23:59 | disposition home or self-care (01) ==
LOC: PAVLAB 08:43
PROVIDERS: PCP Internal Medicine; Referring Provider Internal Medicine; Visit Provider Internal Medicine
DX: E03.9 Hypothyroidism, unspecified (principal); M25.50 Pain in unspecified joint; Z11.59 Encounter for screening for other viral diseases; E55.9 Vitamin D deficiency, unspecified; K76.0 Fatty (change of) liver, not elsewhere classified
CPT/HCPCS: 36415; 82105; 82306; 84443; 85652; 86038; 86140; 86200; 86431; 86803

== ENCOUNTER → 2022-02-03 | Outpatient (CLI) | payer OTHER, SELFPAY ==
--- NOTE | 2022-02-03 09:11 | RAD_ITS ---
STUDY: X-RAY - RIGHT HAND REASON FOR EXAM: Female, 66 years old. Pain. TECHNIQUE: 3 view(s) of the hand. COMPARISON: None. FINDINGS: Osteopenia. Minimal negative ulnar variance. Mild arthrosis of the radiocarpal articulation. Mild arthrosis of the distal radioulnar joint. Moderate arthrosis of the radial carpal row. Moderate to marked arthrosis of the first CMC joint with multiple small intra-articular osteochondral bodies. Moderate arthrosis of the MCP and IP joints. TFCC chondrocalcinosis. Normal soft tissues. RAD/Hand Min 3 Views IMPRESSION: Osteopenia with negative ulnar variance, chondrocalcinosis and osteoarthritic changes as described, most marked at the first CMC joint. No acute abnormality or erosive change. Electronically Signed: Sylvain Decker, at 9:37 EST ,
--- NOTE | 2022-02-03 09:11 | RAD_ITS ---
STUDY: X-RAY - LEFT HAND REASON FOR EXAM: Female, 66 years old. Pain. TECHNIQUE: 3 view(s) of the hand. COMPARISON: None. FINDINGS: Osteopenia. Negative ulnar variance. Cystic change in the ulnar styloid. Moderate arthrosis of the radiocarpal articulation. Mild arthrosis of the distal radial ulnar joint. Moderate arthrosis of the radial carpal row of the wrist. Moderate arthrosis of the first CMC joint. Moderate arthrosis at the MCP and IP joints. Chondrocalcinosis. Normal soft tissues. RAD/Hand Min 3 Views IMPRESSION: Osteopenia with negative ulnar variance and diffuse osteoarthritic changes as described. Chondrocalcinosis. No acute abnormality or erosive changes. Electronically Signed: Sylvain Decker, at 10:12 EST ,
[2022-02-03 10:37] LABS: Hemoglobin A1c 6.3 % (3.8-5.6)
== END | disposition home or self-care (01) ==
LOC: MTLAB 09:09
PROVIDERS: PCP Internal Medicine; Referring Provider Internal Medicine; Visit Provider Internal Medicine
DX: M19.032 Primary osteoarthritis, left wrist (principal); E11.9 Type 2 diabetes mellitus without complications; M85.842 Other specified disorders of bone density and structure, left hand; M18.0 Bilateral primary osteoarthritis of first carpometacarpal joints; E55.9 Vitamin D deficiency, unspecified; E03.9 Hypothyroidism, unspecified; E78.49 Other hyperlipidemia; M25.59 Pain in other specified joint
CPT/HCPCS: 36415; 73130; 83036

== ENCOUNTER → 2022-03-03 | Outpatient (CLI) | payer OTHER, SELFPAY ==
--- NOTE | 2022-03-03 07:56 | US_ITS ---
STUDY: ABDOMINAL ULTRASOUND - RIGHT UPPER QUADRANT REASON FOR VISIT: Female, 67 years old FATTY LIVER TECHNIQUE: Ultrasound evaluation of the right upper quadrant was performed with real-time and static castillo-scale imaging. TECHNICAL QUALITY: Adequate. COMPARISON: Comparison is made with prior examination dated 09/16/2012. FINDINGS: Liver: The liver measures 17.3 cm. There is increased echogenicity consistent with fatty infiltration. The bile ducts are within normal limits. There is hepatic color flow. The direction of portal flow is hepatopetal. There is no demonstrated mass lesion. Gallbladder: Normal distended gallbladder. The gallbladder wall measures 1.5 mm. There is a negative sonographic Rice''s sign. There is no pericholecystic fluid. There are no gallstones. Common Bile Duct (C.B.D.): The common bile duct measures 3.0 mm. Pancreas: Normal size of the head, body and tail of the pancreas. There is normal echogenicity of the pancreas. There is no demonstrated pancreatic mass or cyst. Right Kidney: Normal size of the right kidney. The right kidney measures 11.7 cm x 5.1 cm x 5.1 cm. Normal renal cortex. The right cortex measures 1.7 cm. There is a 1.6 cm x 1.4 cm x 1.9 cm right renal cyst. There is no right hydronephrosis. US/Liver IMPRESSION: Mild hepatomegaly and fatty infiltration of the liver. Small right renal cyst. Electronically Signed: Basim Sharma MD at 13:25 EST ,
--- NOTE | 2022-03-03 08:01 | US_ITS ---
STUDY: ABDOMINAL ULTRASOUND - ELASTOGRAPHY REASON FOR VISIT: Female, 67 years old. Fatty infiltration of the liver. TECHNIQUE: Liver stiffness measurements were obtained on a Pivotstream RS 85 ultrasound machine using a CA 1-7 probe following the SRU guidelines. 3 measurements were obtained using a 2-D-SWE method. The IQR/M was 20 % suggesting a quality data set. TECHNICAL QUALITY: Adequate. COMPARISON: Comparison is made with prior study done earlier today. FINDINGS: Liver: Fatty infiltration of the liver. Median liver stiffness measured 6.4 kPa. US/Elastography Parenchyma/Organ IMPRESSION: Liver stiffness measures 6.4 kPa compatible with F2-F3 (Mild to moderate liver fibrosis) Metavir score. Electronically Signed: Basim Sharma MD at 13:37 EST ,
== END | disposition home or self-care (01) ==
LOC: OPUS 07:53
PROVIDERS: PCP Internal Medicine; Referring Provider Internal Medicine; Visit Provider Internal Medicine
DX: K76.0 Fatty (change of) liver, not elsewhere classified (principal); N28.1 Cyst of kidney, acquired; R16.0 Hepatomegaly, not elsewhere classified
CPT/HCPCS: 76705; 76981

== ENCOUNTER → 2022-06-08 | Outpatient (CLI) | payer OTHER, SELFPAY ==
[2022-06-08 09:02] LABS: Absolute Lymphocyte Count 1.61 X10^3/uL (0.83-4.51); Absolute Neutrophil Count 7.3 X10^3/uL (2.0-7.7); Basophil# 0.09 X10^3/uL; Basophil% 0.9 % (0-1); Eosinophil# 0.23 X10^3/uL; Eosinophils% 2.3 % (0-5); Hematocrit 40.9 % (37-47); Hemoglobin 14.1 g/dL (12.0-15.0); Lymphocyte # 1.61 X10^3/ul (0.83-4.51); Lymphocyte % 16.2 % (19-41); Mean Corp Hgb Conc 34.5 g/dL (32-36); Mean Corpuscular Volume 84.2 fL (81-99); Mean Platelet Vol. 8.8 fl (6.2-12.0); Monocyte# 0.71 X10^3/uL; Monocyte% 7.1 % (0-10); NRBC Flagged by Analyzer 0 % (0-5); Neutrophil # 7.28 X10^3/uL (2.7-7.7); Neutrophil % 73.1 % (47-70); Platelet Count 347 K/mm3 (150-450); RBC Distribution Width CV 12.9 % (11.6-14.6); RBC Distribution Width SD 39.5 fl (35.1-43.9); Red Blood Count 4.86 M/mm3 (4.2-5.4)
[2022-06-08 09:32] LABS: Microalbumin:Creatinine Ratio 9.5 mg/g CRE (<30 mg/g CRE)
[2022-06-08 09:33] LABS: Vitamin D,25 Hydroxy 58.5 ng/mL
[2022-06-08 09:41] LABS: Albumin, Serum 3.7 g/dL (3.2-5.0); BUN 11 mg/dL (7-18); BUN/Creat Ratio 15.6 RATIO (10-20); Creatinine, Serum 0.71 mg/dL (0.55-1.02); EST Glomerular Filtration Rate 88 mL/min (>60); Est Glom Filt Rate - Afr Amer 107 mL/min (>60); Glucose 113 mg/dL (74-106); Protein, Total 7.3 g/dL (6.4-8.2)
[2022-06-08 09:42] LABS: AST(SGOT) 15 U/L (15-37); Alanine Aminotransfer ALT/SGPT 24 U/L (13-56); Alkaline Phosphatase 74 U/L (45-117); Anion Gap 8 (5-15); Calcium,Total 9.8 mg/dL (8.5-10.1); Chloride 103 mmol/L (98-107); Cholesterol 152 mg/dL (200); Globulin 3.6 g/dL (2.2-4.2); High Density Lipoprotein 44 mg/dL; Potassium 3.6 mmol/L (3.5-5.1); Sodium Level 140 mmol/L (136-145); Thyroid Stim Hormone (TSH) 3.11 uIU/mL (0.358-3.74); Triglycerides 157 mg/dL; Very Low Density Lipoprotein 31 mg/dL (5-40)
== END | disposition home or self-care (01) ==
PROVIDERS: PCP Internal Medicine; Referring Provider Internal Medicine; Visit Provider Internal Medicine
DX: E11.9 Type 2 diabetes mellitus without complications (principal); E55.9 Vitamin D deficiency, unspecified; E03.9 Hypothyroidism, unspecified; E78.49 Other hyperlipidemia
CPT/HCPCS: 36415; 80053; 80061; 82043; 82306; 82570; 83036; 84443; 85025

== ENCOUNTER → 2023-01-04 | Outpatient (CLI) | payer OTHER, SELFPAY ==
[2023-01-04 09:04] LABS: Hemoglobin A1c 6.6 % (3.8-5.6)
== END | disposition home or self-care (01) ==
PROVIDERS: PCP Internal Medicine; Referring Provider Internal Medicine; Visit Provider Internal Medicine
DX: R73.02 Impaired glucose tolerance (oral) (principal)
CPT/HCPCS: 36415; 83036

== ENCOUNTER → 2023-08-01 | Outpatient (CLI) | payer MEDICARE, OTHER, SELFPAY ==
[2023-08-01 08:58] LABS: Bacteria 0 SEEN /hpf (None Seen); Mucous, Urine 0 SEEN /hpf (<or=2+); Red Blood Cells-Urine 0 SEEN /hpf (0-5); White Blood Cells 0 SEEN /hpf (0-5)
[2023-08-01 08:58] LABS: Absolute Lymphocyte Count 1.39 X10^3/uL (0.83-4.51); Absolute Neutrophil Count 8.2 X10^3/uL (2.0-7.7); Basophil# 0.13 X10^3/uL; Basophil% 1.2 % (0-1); Eosinophil# 0.26 X10^3/uL; Eosinophils% 2.4 % (0-5); Hematocrit 42.1 % (37-47); Hemoglobin 13.8 g/dL (12.0-15.0); Lymphocyte # 1.39 X10^3/ul (0.83-4.51); Lymphocyte % 12.9 % (19-41); Mean Corp Hgb Conc 32.8 g/dL (32-36); Mean Corpuscular Hgb 28.3 pg (27.0-32.0); Mean Corpuscular Volume 86.4 fL (81-99); Mean Platelet Vol. 9.3 fl (6.2-12.0); Monocyte# 0.76 X10^3/uL; NRBC Flagged by Analyzer 0 % (0-5); Neutrophil # 8.23 X10^3/uL (2.7-7.7); Neutrophil % 76.1 % (47-70); Platelet Count 314 K/mm3 (150-450); RBC Distribution Width CV 12.7 % (11.6-14.6); RBC Distribution Width SD 39.7 fl (35.1-43.9); Red Blood Count 4.87 M/mm3 (4.2-5.4); White Blood Count 10.8 K/mm3 (4.4-11.0)
[2023-08-01 09:12] LABS: Vitamin D,25 Hydroxy 43.8 ng/mL
[2023-08-01 09:17] LABS: AST(SGOT) 14 U/L (15-37); Alanine Aminotransfer ALT/SGPT 25 U/L (13-56); Albumin, Serum 3.6 g/dL (3.2-5.0); Alkaline Phosphatase 82 U/L (45-117); Anion Gap 4 (5-15); BUN 12 mg/dL (7-18); BUN/Creat Ratio 15.9 RATIO (10-20); Calcium,Total 10.2 mg/dL (8.5-10.1); Chloride 103 mmol/L (98-107); Cholesterol 166 mg/dL (200); Creatinine, Serum 0.75 mg/dL (0.55-1.02); EST Glomerular Filtration Rate 82 mL/min (>60); Est Glom Filt Rate - Afr Amer 99 mL/min (>60); Globulin 3.6 g/dL (2.2-4.2); Glucose 154 mg/dL (74-106); High Density Lipoprotein 47 mg/dL; Potassium 3.7 mmol/L (3.5-5.1); Protein, Total 7.2 g/dL (6.4-8.2); Sodium Level 139 mmol/L (136-145); Thyroid Stim Hormone (TSH) 3.26 uIU/mL (0.358-3.74); Triglycerides 230 mg/dL; Very Low Density Lipoprotein 46 mg/dL (5-40)
[2023-08-01 09:20] LABS: Color, Urine Yellow (Yellow); Glucose, Dipstick Normal (Normal); Ketone-Dipstick Negative (Negative); Leukocyte Esterase-Dipstick Negative /ul (Negative); Nitrite-Dipstick Negative (Negative); Occult Blood-Urine Negative /ul (Negative); Protein-Dipstick Negative (Negative); Urine Bilirubin Dipstick Negative (Negative); Urine Clarity Sl. Cloudy (Clear); Urine Urobilinogen Normal (Normal)
[2023-08-01 09:24] LABS: Microalbumin:Creatinine Ratio 8.2 mg/g CRE (<30 mg/g CRE)
[2023-08-01 09:28] LABS: Squamous Epithelial Cells - UA 0-5 SEEN /hpf (5-10)
== END | disposition home or self-care (01) ==
PROVIDERS: PCP Internal Medicine; Referring Provider Internal Medicine; Visit Provider Internal Medicine
DX: E03.9 Hypothyroidism, unspecified (principal); E11.65 Type 2 diabetes mellitus with hyperglycemia; E78.49 Other hyperlipidemia; E55.9 Vitamin D deficiency, unspecified
CPT/HCPCS: 36415; 80053; 80061; 81001; 82043; 82306; 82570; 84443; 85025

== ENCOUNTER 2024-03-13 14:00 | Outpatient (RCR) | payer MEDICARE, OTHER, SELFPAY ==
--- NOTE | 2024-02-15 15:07 | HP.PTEVAL ---
Patient's Visit Information Visit Information Visit Information: FRANCES PARHAM is a 68 year old F referred to Physical Therapy by Dr. Mainor Eric, with a diagnosis of UNILATERAL PRIMARY OSTEOARTHRITIS ,RIGHT ,TROCHANTERIC BURSITIS. Date of Evaluation: 02/15/24 Physical Therapist: Sergo Sánchez, PT, Cert MDT, OCS Visit Plan Frequency: 2x /Week Duration: 4 Weeks Plan: PATIENT CANDIDATE FOR THR HAS SEVERE OA HIP PT INTERVENTIONS ROM HIP ,FLEXABILITY ,STRENGTHENING EX'S HIP/QUADS/HAMS ,FUNCTIONAL STRENGTHENING AND NUSTEP Subjective Subjective: This y/o female presents to physical therapy with right hip pain with OA . Patient has had right hip pain since 2020.Patient seen DR Eric recommended PT x-rays Worsening degenerative arthrosis of the hip joints bilaterally, now with severe joint space narrowing bilaterally. Did injection to lateral hip trochanteric bursitis. Patient located right groin and buttuck and mild lateral hip. Medication over counter ADVIL. Denies paresthesia/tingling . Patient noticed hip 4 years ago noticed the right hip pain. Patient is candidate for THR but try PT. Patient aggravating factors standing ,walking ,unable to squat and kneel . Patient pain affects sleeping on right side . Patient condition affects QOL and housework tasks does better in AM worse as day goes on. Patient goals to get stronger and loose 15# before surgery. SOCIAL: VOCATION: retired Pain Right Hip: Pain Intensity (Out of 10): 5 Pain Intensity Range: 10 Objective Objective: POSTURE: mild forward posture GAIT: reciprocal pattern with antalgic gait with lateral sway trendelenburg right PALPATION: tender lateral hip greater trochanteric NEURO: denies paresthesia/tingling , PROM: hip flexion 90 degrees ,IR 5 degrees ,hip abduction 30 degrees MMT: ( peak force) hip flexion 21.8 ,hip abduction 0 degrees ,quads 20.1 ,hamstrings 14.2 STAIRS: one step at time with rail Special Tests R Hip Scour: Positive R Hip Quadrant - Intraarticular Pathology: Positive R Hip Trendelenberg - Glut Medius: Positive Balance/Special Test Scores Lower Extremity Functional Score: 32 Goals Goal 1:: Patient to be I with HEP for hip Goal Time Frame: 4-6 Weeks Goal 2:: Patient to to improve Hip ROM flexion,abd IR 5-10 degrees to improve function. Goal Time Frame: 4-6 Weeks Goal 3:: Patient to demonstrate 50% improvement with less pain and improved function with gait Goal Time Frame: 4-6 Weeks Goal 4:: Patient to improve peak force strength quads/hams/hip by 5-10 # to improve function Goal Time Frame: 4-6 Weeks Goal 5:: Patient to improve LFES score by 5 points to improve QOL Goal Time Frame: 4-6 Weeks Rehabilitation Potential Physical Therapy Diagnosis: Patient has right hip severe OA with decrease ROM ,strength ,impairs gait and function and candidate for JENNIFER thus benefit from skilled PT Rehabilitation Potential: Good Anticipated Interventions Patient/Client Instruction: Educate patient on: Condition and Plan of Care For the Purpose of:: To decrease pain, To increase ROM, To improve muscle performance and motor function, To improve ability to perform ADL's, To increase tolerance to activity/condition/position, To improve performance and independence with ADL's, To improve ability of physical actions for home/community/work/leisure, To improve health of tissue, To decrease soft tissue restriction and To increase flexibility/ROM Therapeutic Exercise to Include: Strength training, Endurance training, Balance training, Postural training, Flexibilty training, Passive ROM and Active ROM Comment: QUADS/HAMS/HIP For the Purpose of:: To decrease pain, To increase ROM, To improve muscle performance and motor function, To increase tolerance to activity/condition/position, To improve ability of physical actions for home/community/work/leisure, To improve health of tissue, To decrease soft tissue restriction, To increase flexibility/ROM, To improve endurance and To improve tolerance to ADL's Text: Thank you for the opportunity to evaluate your patient. For Medicare and Medicare HMO plans, please review the plan of care and approve it. It will need to be FAXED BACK to us at [phone] for Medicare purposes. For Medicare only, by signing this I certify the plan of care. Please let me know if there are questions or concerns regarding this plan of care. Physician Signature: Date:
--- NOTE | 2024-03-13 14:27 | HP.PTDCSUM ---
Discharge Summary D/C summary: It has been my pleasure to treat FRANCES PARHAM referred by Dr. Mainor Eric DO, with the diagnosis of UNILATERAL PRIMARY OSTEOARTHRITIS ,RIGHT ,TROCHANTERIC BURSITIS for a total of 8 visit(s). Discharge Date: 03/13/24 Please see the following information for a summary of their discharge status. Subjective Subjective: Doing much better walking with less of a limp Sleeping in bed. Stairs are better .. walking longer distance Pain Right Hip: Pain Intensity (Out of 10): 0 Overall Improvement % Improvement: 90 Objective Objective/Function: OSTURE: mild forward posture GAIT: reciprocal pattern with antalgic gait with lateral sway trendelenburg right PALPATION: absent NEURO: denies paresthesia/tingling , PROM: hip flexion 100 degrees ,IR 30 degrees ,hip abduction 40 degrees MMT: ( peak force) hip flexion 31.8 ,hip abduction 26.1 degrees ,quads44.9 ,hamstrings 31.9 STAIRS: one step at time with rail Goals Goal 1:: Patient to be I with HEP for hip Goal Progress: Goal Met Goal 2:: Patient to to improve Hip ROM flexion,abd IR 5-10 degrees to improve function. Goal Progress: Goal Met Goal 3:: Patient to demonstrate 50% improvement with less pain and improved function with gait Goal Progress: Goal Met Goal 4:: Patient to improve peak force strength quads/hams/hip by 5-10 # to improve function Goal Progress: Goal Met Goal 5:: Patient to improve LFES score by 5 points to improve QOL Goal Progress: Goal Met Plan Plan: D/C D/C Information Discharge Comments: HEP d/c sentence: If there are questions or concerns regarding this patient's physical therapy, please feel free to call me at [phone]. Thank you for the referral of this patient. Sincerely, Sergo Sánchez, PT, Cert MDT, OCS Balance/Gait/Functional tests Balance/Special Test Scores Lower Extremity Functional Score: 54 Improvement % Improvement: 90
== END 2024-03-13 19:00 | disposition home or self-care (01) ==
LOC: PT 14:00
PROVIDERS: PCP Internal Medicine; Referring Provider Orthopaedic Surgery; Visit Provider Orthopaedic Surgery
DX: M70.61 Trochanteric bursitis, right hip (principal); M16.11 Unilateral primary osteoarthritis, right hip
CPT/HCPCS: 97110; 97162; 97530

== ENCOUNTER → 2024-05-05 | Outpatient (CLI) | payer MEDICARE, OTHER, SELFPAY ==
[2024-05-05 12:20] LABS: Absolute Lymphocyte Count 1.63 X10^3/uL (0.83-4.51); Absolute Neutrophil Count 11.8 X10^3/uL (2.0-7.7); Basophil# 0.13 X10^3/uL; Basophil% 0.9 % (0-1); Eosinophil# 0.27 X10^3/uL; Eosinophils% 1.8 % (0-5); Hematocrit 42.3 % (37-47); Hemoglobin 13.9 g/dL (12.0-15.0); Lymphocyte # 1.63 X10^3/ul (0.83-4.51); Lymphocyte % 10.9 % (19-41); Mean Corp Hgb Conc 32.9 g/dL (32-36); Mean Corpuscular Hgb 28.9 pg (27.0-32.0); Mean Corpuscular Volume 87.9 fL (81-99); Mean Platelet Vol. 9.2 fl (6.2-12.0); Monocyte# 1.02 X10^3/uL; Monocyte% 6.9 % (0-10); NRBC Flagged by Analyzer 0 % (0-5); Neutrophil # 11.77 X10^3/uL (2.7-7.7); Platelet Count 333 K/mm3 (150-450); RBC Distribution Width CV 12.5 % (11.6-14.6); RBC Distribution Width SD 40.1 fl (35.1-43.9); Red Blood Count 4.81 M/mm3 (4.2-5.4); White Blood Count 14.9 K/mm3 (4.4-11.0)
[2024-05-05 12:41] LABS: Color, Urine Yellow (Yellow); Glucose, Dipstick Normal (Normal); Ketone-Dipstick Negative (Negative); Leukocyte Esterase-Dipstick Negative /ul (Negative); Nitrite-Dipstick Negative (Negative); Occult Blood-Urine 10 /ul (Negative); Protein-Dipstick 15 mg/dl (Negative); Urine Bilirubin Dipstick Negative (Negative); Urine Clarity Clear (Clear); Urine Urobilinogen Normal (Normal)
[2024-05-05 12:50] LABS: ALB/GLOB Ratio 1.5 RATIO (0.9-2.4); AST(SGOT) 17 U/L (<=31); Alanine Aminotransfer ALT/SGPT 16 U/L (<=34); Albumin, Serum 4.4 g/dL (3.4-4.8); Alkaline Phosphatase 79 U/L (35-104); Anion Gap 13 (5-15); BUN 17 mg/dL (4-19); BUN/Creat Ratio 24.5 RATIO (10-20); Calcium,Total 11.1 mg/dL (7.6-11.0); Carbon Dioxide 27.9 mmol/L (21.0-32.0); Chloride 100 mmol/L (98-108); Cholesterol 186 mg/dL (<=200); Creatinine, Serum 0.68 mg/dL (0.70-1.20); EST Glomerular Filtration Rate 95 (>60); Globulin 2.8 g/dL (2.2-4.2); Glucose 113 mg/dL (70-99); High Density Lipoprotein 52 mg/dL; Low Density Lipoprotein Calc. 83 mg/dL; Potassium 4.1 mmol/L (3.3-5.1); Protein, Total 7.2 g/dL (5.9-8.4); Sodium Level 141 mmol/L (133-145); Total Bilirubin 0.38 mg/dL (0.00-1.30); Triglycerides 256 mg/dL; Very Low Density Lipoprotein 51 mg/dL (5-40); Vitamin D,25 Hydroxy 44.1 ng/mL (30-100)
[2024-05-05 13:10] LABS: Microalbumin,Random Urine < 12.0 mg/L (NO RANGE EST.); Microalbumin:Creatinine Ratio UNABLE TO CALCULATE mg/g CRE
== END | disposition home or self-care (01) ==
LOC: MTLAB 09:57
PROVIDERS: PCP Internal Medicine; Referring Provider Internal Medicine; Visit Provider Internal Medicine
DX: E11.9 Type 2 diabetes mellitus without complications (principal); E55.9 Vitamin D deficiency, unspecified; E03.9 Hypothyroidism, unspecified
CPT/HCPCS: 36415; 80053; 80061; 81002; 82043; 82306; 82570; 84443; 85025

== ENCOUNTER → 2024-08-22 | Outpatient (CLI) | payer MEDICARE, OTHER, SELFPAY ==
--- NOTE | 2024-08-22 14:36 | BI_ITS ---
EXAM: SCRN MAMM (CAD)W/SHAMA BILAT DATE: 08/22/2024 CLINICAL HISTORY: F, Age 69 y/o , BREAST CANCER SCREENING TECHNIQUE: SCRN MAMM (CAD)W/SHAMA BILAT COMPARISON: Prior exam(s) dated 11/21/2021, 06/22/2020, 03/25/2019. FINDINGS: TISSUE DENSITY: The breasts are almost entirely fatty. Bilateral Breast Mammographic Findings: No significant masses, calcifications or other abnormalities are identified. BI/SCRN MAMM (CAD)W/SHAMA BILAT IMPRESSION: There is no mammographic evidence of malignancy. OVERALL FINAL ASSESSMENT BI-RADS 1: NEGATIVE. RECOMMENDATION: Routine annual follow-up in 1 Year A letter with findings and recommendations will be mailed to the patient. Reading Location: [id number]
== END | disposition home or self-care (01) ==
LOC: OPBI 14:34
PROVIDERS: PCP Internal Medicine; Referring Provider Internal Medicine; Visit Provider Internal Medicine
DX: Z12.31 Encounter for screening mammogram for malignant neoplasm of breast (principal)
CPT/HCPCS: 77063; 77067

== ENCOUNTER → 2024-12-03 | Outpatient (CLI) | payer MEDICARE, OTHER, SELFPAY ==
[2024-12-03 08:42] LABS: Mucous, Urine 0 SEEN /hpf (<or=2+); Red Blood Cells-Urine 0 SEEN /hpf (0-5)
[2024-12-03 10:26] LABS: Color, Urine Yellow (Yellow); Glucose, Dipstick Normal (Normal); Ketone-Dipstick Negative (Negative); Leukocyte Esterase-Dipstick Negative /ul (Negative); Nitrite-Dipstick Negative (Negative); Occult Blood-Urine 10 /ul (Negative); Protein-Dipstick 15 mg/dl (Negative); Specific Gravity, Urine 1.010 (1.002-1.030); Urine Bilirubin Dipstick Negative (Negative)
[2024-12-03 10:27] LABS: Hematocrit 37.8 % (37-47); Hemoglobin 12.2 g/dL (12.0-15.0); Immature Granulocytes Count 0.040 X10^3/uL (0.0-0.0); Mean Corp Hgb Conc 32.3 g/dL (32-36); Mean Corpuscular Volume 87.9 fL (81-99); Mean Platelet Vol. 8.9 fl (6.2-12.0); NRBC Flagged by Analyzer 0 % (0-5); Platelet Count 364 K/mm3 (150-450); RBC Distribution Width CV 13.1 % (11.6-14.6); RBC Distribution Width SD 41.8 fl (35.1-43.9); Red Blood Count 4.30 M/mm3 (4.2-5.4); White Blood Count 11.3 K/mm3 (4.4-11.0)
[2024-12-03 10:34] LABS: Squamous Epithelial Cells - UA 0-5 SEEN /hpf (5-10)
[2024-12-03 10:51] LABS: Creatinine, Urine (random) 88.40 mg/dL (28.00-217.00); Microalbumin,Random Urine 15.1 mg/L (<20 mg/L)
[2024-12-03 12:56] LABS: Cholesterol 140 mg/dL (<=200); Low Density Lipoprotein Calc. 68 mg/dL; Triglycerides 195 mg/dL; Very Low Density Lipoprotein 39 mg/dL (5-40); Vitamin D,25 Hydroxy 49.4 ng/mL (30-100); cholesterol:hdl ratio screen 3.51
[2024-12-04 15:19] LABS: AST(SGOT) 18 U/L (<=31); Alanine Aminotransfer ALT/SGPT 13 U/L (<=34); Albumin, Serum 4.2 g/dL (3.4-4.8); Alkaline Phosphatase 69 U/L (35-104); Anion Gap 14 (5-15); BUN 15 mg/dL (4-19); BUN/Creat Ratio 24.9 RATIO (10-20); Calcium,Total 10.8 mg/dL (7.6-11.0); Carbon Dioxide 28.4 mmol/L (21.0-32.0); Chloride 99 mmol/L (98-108); Globulin 2.8 g/dL (2.2-4.2); Glucose 71 mg/dL (70-99); Potassium 4.2 mmol/L (3.3-5.1)
== END | disposition home or self-care (01) ==
LOC: MTLAB 08:35
PROVIDERS: PCP Internal Medicine; Referring Provider Internal Medicine; Visit Provider Internal Medicine
DX: E55.9 Vitamin D deficiency, unspecified (principal); E11.9 Type 2 diabetes mellitus without complications; E78.49 Other hyperlipidemia; E03.9 Hypothyroidism, unspecified
CPT/HCPCS: 36415; 80053; 80061; 81001; 82043; 82306; 82570; 84443; 85025

== ENCOUNTER → 2024-12-12 | Outpatient (CLI) | payer MEDICARE, OTHER, SELFPAY | END | disposition home or self-care (01) | LOC: CIMLAB 10:04 | PROVIDERS: PCP Internal Medicine; Referring Provider Internal Medicine; Visit Provider Internal Medicine | DX: E11.9 Type 2 diabetes mellitus without complications (principal) | CPT/HCPCS: 36415; 83036 ==

== ENCOUNTER → 2024-12-22 | Outpatient (CLI) | payer MEDICARE, OTHER, SELFPAY ==
--- NOTE | 2024-12-22 14:04 | CDU_ITS ---
Reason For Study Reason For Study: Atherosclerosis Rt. Velocities/BP Lt. Velocities/BP Prox CCA 130.8/24.8 cm/sec. Prox CCA 91.6/20.4 cm/sec. Mid CCA 77.6/12.7 cm/sec. Mid CCA 79.3/15.5 cm/sec. Dist CCA 63.9/14.7 cm/sec. Dist CCA 83.0/16.7 cm/sec. Prox ICA 75.9/20.1 cm/sec. Prox ICA 69.2/22.0 cm/sec. Mid ICA 88.8/27.4 cm/sec. Mid ICA 81.4/28.6 cm/sec. Dist ICA 94.9/22.5 cm/sec. Dist ICA 89.4/33.3 cm/sec. Rt. ICA/CCA = 1.2. Lt. ICA/CCA = 1.1. Prox ECA 94.9/11.4 cm/sec. Prox ECA 110.7/12.1 cm/sec. Rt. Vert. 56.1/18.6 cm/sec. Lt. Vert. 45.9/9.1 cm/sec. Right Extracranial There is intimal thickening but no significant atherosclerotic plaque noted in the right common carotid artery. There is heterogeneous, irregular atherosclerotic plaque noted in the right internal carotid artery. There is heterogeneous, smooth atherosclerotic plaque noted in the right external carotid artery. Antegrade flow is noted in the right vertebral artery. Left Extracranial There is intimal thickening but no significant atherosclerotic plaque noted in the left common carotid artery. There is heterogeneous, irregular atherosclerotic plaque noted in the left internal carotid artery. The atherosclerotic plaque causes acoustic shadowing. There is heterogeneous, irregular atherosclerotic plaque noted in the left external carotid artery. Antegrade flow is noted in the left vertebral artery. Procedure Carotid Duplex 96200. This is a Carotid Duplex examination using B-mode, color flow and specral Doppler. The exam was diagnostic. Exam performed in department. VL/Carotid Duplex Ultrasound Interpretation Summary Mild (<50%) stenosis right extracranial internal carotid. Mild (<50%) stenosis left extracranial internal carotid. Acoustic shadowing in the proximal left internal carotid artery precludes castillo- scale imaging of a portion of the lumen. Flow within the vertebral arteries is antegrade bilaterally. Ordering Physician: Riri Aviles Referring Physician: Riri Aviles Performed By: Jonas Patino RVT and Student
== END | disposition home or self-care (01) ==
LOC: CVS 14:04
PROVIDERS: PCP Internal Medicine; Referring Provider Internal Medicine; Visit Provider Internal Medicine
DX: I65.23 Occlusion and stenosis of bilateral carotid arteries (principal)
CPT/HCPCS: 93880